=== PATIENT | male | born 1935 | race Caucasian/White ===

== ENCOUNTER 2023-03-06 12:51 | Outpatient (OUT) | payer MEDICARE, BC, OTHER, SELFPAY ==
--- NOTE | 2023-03-06 12:53 | VEIN_ITS ---
Patient: FADUMO FERRIS Exam Date: 03/06/2023 : 1935 Gender:M Ordering : DR. ALEX GuzmánPVale Admission #: [id number] Family : Order #: [id number] CLICK HERE TO VIEW EXAM RADIOLOGY REPORT PROCEDURE: FACILITY EST COMPREHENSIVE VEIN CENTER - OFFICE VISIT INITIAL COMPARISON: VC EXT VENOUS REFLUX SANGITA LMTD, 03/06/2023. PROGRESS NOTES: [age] year old male who presents with a 1 year history of leg pain and swelling, weakness, bulging dilated veins, cramping after walking short distances which resolves with rest. The patient's leg symptoms are symmetric bilaterally. There has been a progression of symptoms over the past year. This increases with walking. The patient describes an improvement with rest. The patient denies any signs and symptoms to suggest arterial ischemia. The patient describes a family history which is noncontributory. The patient has drinking and smoking history of colon no tobacco use or alcohol consumption. Patient has a past medical history significant for thrombocytopenia, hypertension.. The patient denies a history of deep venous thrombus or pulmonary embolus. See separate history and physical for medication list. No prior treatment for varicose or spider veins. No current use of compression stockings. After review of nurse notes, history and physical exam I discussed at length the pathophysiology of venous hypertension and possible treatments, therapies and strategies available. We discussed at length the importance of elevating the lower extremities above the level of the heart, increased physical activity and compression stocking use. Ultrasound venous reflux study performed on same day was discussed at length with the patient. The examination demonstrates bilateral deep vein thrombus within the femoral veins. There is also dilated, incompetent right great saphenous, right small saphenous, and left anterior accessory saphenous veins. PHYSICAL EXAM: The right leg demonstrates several varicosities, a few spider veins, no ulceration, mild edema, no significant skin discoloration. The left leg demonstrates several varicosities, a few spider veins, no ulceration, mild edema, no significant skin discoloration. Both thighs, legs and feet were symmetrically warm to the touch. Good posterior tibial and dorsalis pedis pulses were present bilaterally. IMPRESSION: 1. Bilateral lower extremity deep vein thrombus. 2. Bilateral lower extremity venous insufficiency 3. Bilateral lower extremity varicose veins 4. Mild bilateral lower extremity subcutaneous edema 5. Suspect, according to patient history, flow significant arterial disease 6. CEAP: C3, AP, AP, DC PLAN: 1. Began use of compression stockings 2. Elevated legs and increased physical activity symptomatic relief 3. Primary care physician notified of bilateral deep vein thrombi and will handle treatment. 4. Bilateral lower extremity arterial ultrasound is recommended for further evaluation since I suspect an arterial component to patient's symptoms. If study is negative or of little contribution to patient's symptoms, endovenous ablation of incompetent vein should be considered. Nurse notes, history and physical were reviewed and confirmed, see attached forms. The nurse was present throughout the physical exam and consultation Dictated by: Shawn Veronica M.D. on 03/07/2023 at 08:51 Approved by: Shawn Veronica M.D. on 03/07/2023 at 09:45
--- NOTE | 2023-03-06 12:54 | VEIN_ITS ---
Patient: FADUMO FERRIS Exam Date: 03/06/2023 : 1935 Gender:M Ordering : DR. ALEX GuzmánPVale Admission #: [id number] Family : Order #: [id number] CLICK HERE TO VIEW EXAM RADIOLOGY REPORT PROCEDURE: VC EXT VENOUS REFLUX SANGITA LMTD COMPARISON: None. INDICATIONS: I83.813 TECHNIQUE: Duplex imaging of the lower extremity to assess the deep and superficial venous system for the presence of deep or superficial venous incompetence and to document the location and severity of disease. The study includes evaluation of the great saphenous vein (GSV), anterior accessory saphenous vein (AASV) and small saphenous vein (SSV). Patient scanned in reverse Trendelenburg and standing. FINDINGS: RIGHT LOWER EXTREMITY: Saphenofemoral Junction Reflux: Yes 8.7mm 1.7 sec GSV: Diam (mm) Reflux/ Time (sec) Proximal Thigh 7.9 Yes 2.5 Mid Thigh 5.8 Yes 1.2 Distal Thigh 5.1 Yes 0.7 Prox Calf 3.5 No Mid Calf 4.0 No Saphenopopliteal Junction Reflux: 6.5mm Yes 1.4 SSV: Proximal Calf 5.1 Yes 0.8 Mid Calf 3.0 No AASV: Proximal Thigh Mid Thigh Distal Thigh Thrombi: Positive for DVT in FV and Pop V. Compressibility: Non compressible segments Flow: Areas of no flow. Preforator: Dist/med calf 2.2 mm with 0s reflux. Tech Note: Incompetent SFJ and GSV. Patent varicose vein dist/med calf 2.9mm with 0.8s reflux. Patent medial knee 4.0mm with 2.6s reflux. Patent varicose vein mid/med thigh 5.1mm with 1.2s reflux. Patent varicose vein dist/med thigh 2.7mm with 0.9s reflux. LEFT LOWER EXTREMITY: Saphenofemoral Junction Reflux: Yes 8.4 mm 0.7 sec GSV: Diam (mm) Reflux/Time (sec) Proximal Thigh 2.8 No Mid Thigh 1.8 Yes 0.6 Distal Thigh 2.4 No Prox Calf 1.6 No Mid Calf 2.2 No Saphenopopliteal Junction Relux: 2.7 mm No SSV: Proximal Calf 2.1 No Mid Calf 1.7 No AASV: Proximal Thigh 5.6 Yes 1.4 Mid Thigh 5.6 Yes 1.8 Distal Thigh Thrombi: Positive for DVT in FV. Compressibility: Non compressible segments Flow: Areas of no flow. Sprayer Insecticide: Dist/med calf 2.5mm with 0s reflux. Tech Note: Incompetent SFJ and AASV. Patent varicose vein mid/med calf 2.9mm with 0s reflux. Patent varicose vein mid/ant thigh 2.3mm with 0.5s reflux. CONCLUSION: 1. Dilated, incompetent right great saphenous vein, right small saphenous vein, and left anterior accessory saphenous vein. 2. Associated incompetent branch saphenous varicosities bilaterally. 3. Deep vein thrombus within right and left femoral veins and right popliteal vein. Findings are being called to the office of Dr. Tobias. Dictated by: Shawn Veronica M.D. on 03/06/2023 at 14:35 Approved by: Shawn Veronica M.D. on 03/06/2023 at 14:44
== END 2023-03-06 12:52 ==
LOC: VC 12:52
PROVIDERS: PCP Podiatrist Foot & Ankle Surgery; Visit Provider Podiatrist Foot & Ankle Surgery
DX: I83.813 Varicose veins of bilateral lower extremities with pain (principal); I87.2 Venous insufficiency (chronic) (peripheral); I83.893 Varicose veins of bilateral lower extremities with other complications; R60.0 Localized edema; I82.413 Acute embolism and thrombosis of femoral vein, bilateral; I82.431 Acute embolism and thrombosis of right popliteal vein
CPT/HCPCS: 93970; G0463

== ENCOUNTER 2023-03-21 13:00 | Outpatient (OUT) | payer MEDICARE, BC, SELFPAY ==
--- NOTE | 2023-03-21 | VEIN_ITS ---
[address] [address] Patient Name: FADUMO FERRIS MRN: [id number] date: 1935 Sex: M Assigned Patient Location: Current Patient Location: Accession/Order Number: [id number] Exam Date: 03/21/2023 13:00 Report Date: 03/21/2023 14:31 At the request of: ANNABEL LEBLANC Procedure: VC Arterial Scan Pillo EXAM: VC Arterial Scan Pillo HISTORY: atherosclerosis of bilateral lower extremities i70.213 COMPARISON: None. TECHNIQUE: Grayscale, color and Doppler ultrasound FINDINGS: Right leg: Normal triphasic waveforms proximally to the level of the popliteal artery. Biphasic waveform popliteal artery and distal. No spectral broadening or delayed systolic upstroke. Normal flow velocities. No occlusion or aneurysm Left leg: Biphasic waveforms throughout the entire leg with a monophasic waveform in the anterior tibial artery and delayed systolic upstroke and spectral broadening in the dorsalis pedis artery. No occlusion or aneurysm IMPRESSION: Mild ischemic waveform throughout the right leg distal to the popliteal artery Mild ischemic waveform throughout the left leg with moderate ischemia in the anterior tibial and dorsalis pedis arteries Electronically authenticated by: ANNABEL LEBLANC Date: 03/21/2023 14:31
== END 2023-03-21 13:01 ==
LOC: VC 03-24 07:48
PROVIDERS: PCP Radiology Diagnostic Radiology; Visit Provider Radiology Diagnostic Radiology
DX: I70.213 Atherosclerosis of native arteries of extremities with intermittent claudication, bilateral legs (principal)
CPT/HCPCS: 93925

== ENCOUNTER 2023-04-22 08:03 | Outpatient (OUT) | payer MEDICARE, BC, SELFPAY ==
--- NOTE | 2023-04-22 08:08 | VEIN_ITS ---
Patient: FADUMO FERRIS Exam Date: 04/22/2023 : 1935 Gender:M Ordering : DR KELSIE LOZANO . Admission #: [id number] Family : Order #: [id number] CLICK HERE TO VIEW EXAM RADIOLOGY REPORT PROCEDURE: VC EXT VENOUS SANGITA LIMITED COMPARISON: None. INDICATIONS: I80.03 Phlebitis of superficial veins of sangita lower extremity TECHNIQUE: Lower extremity schilling scale and Duplex Doppler evaluation of the deep venous system from the inguinal ligament through the calf veins. FINDINGS: REGION: Right lower extremity. THROMBI: Chronic appearing thrombus. Positive for DVT. 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 COMPRESSIBILITY: Non-compressible & partially compressible segments. FLOW: Areas on no flow. OTHER: REGION: Left lower extremity. THROMBI: None.Negative for DVT. COMPRESSIBILITY: Normal compressibility. FLOW: Normal waveform and antegrade flow between 5 and 20 cm/s. OTHER: Negative. *Exam performed in accordance with [facility] practice guidelines- Peripheral venous ultrasound, December 30, 2009. CONCLUSION: 1. Occlusive thrombus identified in the right distal femoral vein 2. Nonocclusive thrombus right popliteal vein Dictated by: Johnathon Graves MD on 04/22/2023 at 08:43 Approved by: Johnathon Graves MD on 04/22/2023 at 08:45
--- NOTE | 2023-04-22 08:08 | VEIN_ITS ---
Patient: FADUMO FERRIS Exam Date: 04/22/2023 : 1935 Gender:M Ordering : DR Darin Tobias . Admission #: [id number] Family : Order #: [id number] CLICK HERE TO VIEW EXAM RADIOLOGY REPORT PROCEDURE: VC FACILITY EST LMTD VEIN CENTER - OFFICE VISIT FOLLOW UP COMPARISON: None. PROGRESS NOTES: The patient reports no interval change from the prior exam. The patient continues to take Eliquis b.i.d. For blood clots. The patient has no new symptoms to report. Physical exam demonstrates scattered bilateral varicose reticular and spider veins. No areas of erythema or warmth to suggest cellulitis or thrombophlebitis. No active ulceration or subcutaneous edema Review of the ultrasound performed the same day demonstrates resolution of thrombus in the left leg however there is occlusive deep vein thrombus in the right femoral vein and nonocclusive deep vein thrombus in the right popliteal vein. Given the persistence of right leg disease, continued surveillance is recommended to the patient rather than treatment of the anterior accessory saphenous vein at this time. I recommended that the patient continue on his Eliquis with follow-up 3-4 months. VEIN/VC Facility EST LMTD IMPRESSION: 1. Persistent deep vein thrombus in the right femoral and right popliteal veins. PLAN: Follow-up in 3-4 months Nurse notes, history and physical were reviewed and confirmed, see attached forms. The nurse was present throughout the physical exam and consultation Dictated by: Johnathon Graves MD on 04/22/2023 at 10:12 Approved by: Johnathon Graves MD on 04/22/2023 at 11:08
== END 2023-04-22 08:04 | disposition home or self-care (01) ==
LOC: VC 08:03
PROVIDERS: PCP Family Medicine; Visit Provider Family Medicine
DX: I82.412 Acute embolism and thrombosis of left femoral vein (principal); I82.431 Acute embolism and thrombosis of right popliteal vein
CPT/HCPCS: 93970; G0463

== ENCOUNTER 2023-05-10 13:40 | Outpatient (OUT) | payer MEDICARE, BC, SELFPAY ==
[2023-05-10 10:56] LABS: Basophils Absolute Auto 0.1 10^3/uL (0.0-0.1); Basophils Percent Auto 1.4 % (0.2-2.0); Eosinophils Absolute Auto 0.2 10^3/uL (0.0-0.7); Hematocrit 46.5 % (42.0-54.0); Hemoglobin 15.5 g/dL (14.0-18.0); Immature Granulocytes Abs Auto 0.01 10^3/uL (0.00-0.03); Immature Granulocytes Pct Auto 0.2 % (0.0-0.5); Lymphocytes Absolute Auto 1.7 10^3/uL (1.2-3.8); Lymphocytes Percent Auto 28.7 % (20.5-60.0); Mean Corpuscular HGB Conc 33.3 g/dL (29.9-35.2); Mean Corpuscular Hemoglobin 30.3 pg (25.9-34.0); Mean Platelet Volume 10.6 fL (9.5-13.5); Monocytes Absolute Auto 0.6 10^3/uL (0.3-0.8); Monocytes Percent Auto 9.5 % (1.7-12.0); Neutrophils Absolute Auto 3.3 10^3/uL (1.4-6.5); Neutrophils Percent Auto 56.2 % (43.0-75.0); Platelet Count 170 10^3/uL (150-450); Red Blood Count 5.11 10^6/uL (4.70-6.10); Red Cell Distribution Width 13.2 % (11.0-15.0); White Blood Count 5.8 10^3/uL (4.0-11.0)
[2023-05-10 11:16] LABS: Estimated Average Glucose 103 mg/dL; Glycohemoglobin A1C 5.2 % (4.5-6.2)
[2023-05-10 11:32] LABS: Alanine Aminotransferase 29 U/L (16-63); Albumin Globulin Ratio 1.1; Albumin Level 3.9 g/dL (3.4-5.0); Alkaline Phosphatase 100 U/L (46-116); Anion Gap 12.1; Aspartate Amino Transferase 23 U/L (15-37); BUN Creatinine Ratio 14.2; Bilirubin Total 0.6 mg/dL (0.2-1.0); Carbon Dioxide 25.2 mmol/L (21.0-32.0); Chloride 104 mmol/L (98-107); Chol HDL Ratio 4.4; Cholesterol 169 mg/dL (<=200); Estimated GFR (African America >60 (>=60); Estimated GFR (Non-African Ame 51 (>=60); Free T3 2.45 pg/mL (2.18-3.98); Globulin 3.4 g/dL; Glucose 103 mg/dL (74-106); HDL Cholesterol 38 mg/dL (40-60); Potassium 4.3 mmol/L (3.5-5.1); Sodium 137 mmol/L (136-145); Thyroid Stimulating Hormone 4.413 uIU/mL (0.358-3.740); Total Protein 7.3 g/dL (6.4-8.2); Triglycerides 56 mg/dL (<=150); VLDL CHOLESTEROL 11.2 mg/dL
== END 2023-05-10 13:41 | disposition home or self-care (01) ==
LOC: LAB 05-19 13:41
PROVIDERS: PCP Family Medicine; Visit Provider Family Medicine
DX: E78.5 Hyperlipidemia, unspecified (principal); R53.1 Weakness; I10 Essential (primary) hypertension; N28.9 Disorder of kidney and ureter, unspecified; R73.09 Other abnormal glucose; D64.9 Anemia, unspecified
CPT/HCPCS: 36415; 80053; 80061; 83036; 83540; 84436; 84443; 84481; 85025

== ENCOUNTER 2023-05-21 13:01 | Outpatient (OUT) | payer MEDICARE, BC, SELFPAY ==
--- NOTE | 2023-05-21 13:03 | CT_ITS ---
[address] [address] Patient Name: FADUMO FERRIS MRN: [id number] date: 1935 Sex: M Assigned Patient Location: CT Current Patient Location: CT Accession/Order Number: [id number] Exam Date: 05/21/2023 13:10 Report Date: 05/21/2023 22:00 At the request of: KELSIE LOZANO Procedure: CT angio LE BI EXAMINATION: CT angio LE BI HISTORY: Weakness R53.1 COMPARISON: No relevant comparison available. TECHNIQUE: After obtaining the patient's consent, CT images of the abdomen, pelvis, and lower extremities were obtain without and with non-ionic intravenous contrast material. Multi-planar reformatted 3-D images were created to optimize vascular anatomy. Dose reduction techniques were achieved by using automated exposure control and/or adjustment of mA and/or kV according to patient size and/or use of iterative reconstruction technique. FINDINGS: AORTA: The distal aorta is normal in caliber with no flow significant stenosis occlusion or aneurysm. Mild atherosclerosis ILIAC: No flow significant stenosis occlusion or aneurysm RIGHT LEG: No flow significant stenosis occlusion or aneurysm. Minimal atherosclerosis LEFT LEG: No flow significant stenosis occlusion or aneurysm. Minimal atherosclerosis LUNG BASES: No visible pulmonary or pleural disease. LIVER: No enlargement, atrophy, abnormal density, or significant focal lesion. BILIARY: No visible dilatation or calcification. PANCREAS: No lesion, fluid collection, ductal dilatation, or atrophy. SPLEEN: No enlargement or focal lesion. ADRENALS: No mass or enlargement. KIDNEYS: No mass, obstruction, or calcification. BOWEL/MESENTERY: No visible mass, obstruction, or bowel wall thickening. Colonic diverticulosis RETROPERITONEUM: No mass or adenopathy. ABDOMINAL WALL: No mass or hernia. URINARY BLADDER: No visible focal wall thickening, lesion, or calculus. PELVIC NODES: No adenopathy. PELVIC ORGANS: Mildly enlarged prostate gland BONES: No bony lesion or fracture. Moderate degenerative changes OTHER: Negative. CT/CT angio LE BI IMPRESSION: No flow significant stenosis, occlusion or aneurysm in the bilateral lower extremity arterial tree Electronically authenticated by: ANNABEL LEBLANC Date: 05/21/2023 22:00
== END 2023-05-21 13:02 | disposition home or self-care (01) ==
LOC: CT 13:01
PROVIDERS: PCP Family Medicine; Visit Provider Family Medicine
DX: R53.1 Weakness (principal)
CPT/HCPCS: 73706; Q9967

== ENCOUNTER 2023-06-10 22:08 | Emergency (ER) | payer MEDICARE, BC, OTHER, SELFPAY ==
[2023-06-10 22:11] VITALS: BP 159/70; PULSE 91; RESP 18; TEMP 36.9; O2SAT 93; BMI 27.5
--- NOTE | 2023-06-10 22:24 | PC.NURSE ---
pt states that he has had anxiety for the past 2 months, saw dr. french last week and was prescribed hydroxyzine and has been taking for little over a week. pt states that the medication isn't helping at all. family states that patient called them the other night and pt was sitting on porch because pt couldn't sleep. pt states today he is feeling hyper and needs something for his anxiety to help him relax.
--- NOTE | 2023-06-10 22:25 | ED.ANXIETY1 ---
HPI - Anxiety General Chief Complaint: Anxiety Stated Complaint: Anxiety Time Seen by Provider: 06/10/23 22:14 Source: patient Mode of arrival: Wheelchair Limitations: no limitations History of Present Illness HPI narrative: patient presents complaining of anxiety. States he was seen by his PCP and prescribed hydroxyzine 25 qid prn. States it is not helping. He is now brought to the [facility] by his family because he is feeling anxious. No chest pain or dyspnea. Past history of anxiety. Son states history of anxiety for some time now but has increased in the past 2 weeks and is now interfering with him sleeping. He is pacing around the house early AM hours not able to rest and feeling panicky MD complaint: Reports anxiety Related Data Home Medications Medication Instructions Recorded Confirmed amitriptyline 50 mg tablet 50 mg PO DAILY 06/10/23 06/10/23 apixaban 5 mg tablet (Eliquis) 5 mg PO DAILY 06/10/23 06/10/23 benazepril 20 mg tablet 20 mg PO DAILY 06/10/23 06/10/23 carvedilol 12.5 mg tablet 12.5 mg PO DAILY 06/10/23 06/10/23 celecoxib 100 mg capsule 100 mg PO DAILY 06/10/23 06/10/23 finasteride 5 mg tablet 5 mg PO DAILY 06/10/23 06/10/23 hydralazine 50 mg tablet 50 mg PO DAILY 06/10/23 06/10/23 levothyroxine 50 mcg tablet 50 mcg PO DAILY 06/10/23 06/10/23 (Synthroid) Allergies Allergy/AdvReac Type Severity Reaction Status Date / Time No Known Drug Allergies Allergy Verified 06/10/23 22:18 Review of Systems ROS Status of ROS 10 or more systems reviewed and unremarkable except as noted in history and below Exam Constitutional Vital Signs, click to edit/add: Last Vital Signs Temp 98.5 F 06/10/23 22:11 Pulse 91 H 06/10/23 22:11 Resp 18 06/10/23 22:11 BP 159/70 H 06/10/23 22:11 Pulse Ox 93 L 06/10/23 22:11 O2 Del Method Room Air 06/10/23 22:11 General appearance: anxious Eye Common normals: EOMs intact bilaterally and conjunctivae normal Respiratory Common normals: normal respiratory effort, no retractions, no use of accessory muscles and clear to auscultation bilaterally Cardio Common normals: regular rate, regular rhythm, S1 normal heart sound and S2 normal heart sound GI Common normals: Normal to inspection, nondistended, normoactive bowel sounds present, soft to palpation and non-tender Extremity Common normals: normal to inspection and full ROM Neuro Common normals: oriented x3, moves all extremities, no focal motor deficits and no sensory deficits noted Psych Mood and affect: anxious Course Vital Signs Vital signs: Vital Signs Temperature 98.5 F 06/10/23 22:11 Pulse Rate 91 H 06/10/23 22:11 Respiratory Rate 18 06/10/23 22:11 Blood Pressure 159/70 H 06/10/23 22:11 Pulse Oximetry 93 L 06/10/23 22:11 Oxygen Delivery Method Room Air 06/10/23 22:11 Temperature 98.5 F 06/10/23 22:11 Pulse Rate 91 H 06/10/23 22:11 Respiratory Rate 18 06/10/23 22:11 Blood Pressure 159/70 H 06/10/23 22:11 Pulse Oximetry 93 L 06/10/23 22:11 Oxygen Delivery Method Room Air 06/10/23 22:11 MDM - Anxiety MDM Narrative Medical decision making narrative: patient presents complaining of anxiety. past history of the same. Prescribed hydroxyzine by his PCP but states it did not help. Given Ativan 0.5mg once here in the department and after an hour he felt relaxed and ready to go home. States he will follow up with his PCP tomorrow Discharge Plan Discharge Chief Complaint: Anxiety Clinical Impression: Acute anxiety Patient Disposition: Home, Self-Care Prescriptions / Home Meds: No Action amitriptyline 50 mg tablet 50 mg PO DAILY Eliquis 5 mg tablet 5 mg PO DAILY benazepril 20 mg tablet 20 mg PO DAILY carvedilol 12.5 mg tablet 12.5 mg PO DAILY celecoxib 100 mg capsule 100 mg PO DAILY finasteride 5 mg tablet 5 mg PO DAILY hydralazine 50 mg tablet 50 mg PO DAILY levothyroxine [Synthroid] 50 mcg tablet 50 mcg PO DAILY Instructions: Anxiety (ED) Stand Alone Forms: Portal Instructions Referrals: Darin Tobias MD [Primary Care Provider] - 1 week
[2023-06-10] MEDS: LORAZEPAM 0.5 MG TABLET PO ×2 (22:46→23:54)
[2023-06-10 23:57] VITALS: O2SAT 97
== END 2023-06-10 23:57 | disposition home or self-care (01) ==
PROVIDERS: Emergency Provider Internal Medicine; PCP Family Medicine
DX: F41.9 Anxiety disorder, unspecified (principal); Z79.899 Other long term (current) drug therapy; Z79.890 Hormone replacement therapy; Z79.01 Long term (current) use of anticoagulants
CPT/HCPCS: 99283

== ENCOUNTER 2023-08-22 12:59 | Outpatient (OUT) | payer MEDICARE, BC, SELFPAY ==
--- NOTE | 2023-08-22 13:03 | US_ITS ---
[place] [id number] Patient Name: FADUMO FERRIS MRN: [id number] date: 1935 Sex: M Assigned Patient Location: Current Patient Location: Accession/Order Number: [id number] Exam Date: 08/22/2023 13:05 Report Date: 08/25/2023 06:46 At the request of: KELSIE LOZANO Procedure: US arterial duplex LE BI EXAMINATION: US arterial duplex LE BI HISTORY: Intermittent Claudication I73.9, Leg Pain M79.606 COMPARISON: No relevant comparison available. TECHNIQUE: Color and Duplex Doppler ultrasound evaluation analysis were performed in the usual manner. FINDINGS: RIGHT LOWER EXTREMITY ARTERIAL: Poor triphasic waveform within iliac and common femoral arteries. Abnormal biphasic waveform within femoral artery through calf arteries. Moderate vessel narrowing throughout secondary to calcified and noncalcified plaque. External Iliac PSV: 153.1 cm/s External Iliac EDV: 4.4 cm/s Common Femoral PSV: 113.6 cm/s Common Femoral EDV: 6.7 cm/s Superficial Femoral Proximal PSV: 125.2 cm/s Proximal EDV: 0.0 cm/s Mid PSV: 143.8 cm/s Mid EDV: 0.0 cm/s Distal PSV: 109.0 cm/s Distal EDV: 0.0 cm/s Popliteal Proximal PSV: 99.7 cm/s Popliteal Proximal EDV: 0.0 cm/s Posterior Tibial Proximal PSV: 79.0 cm/s Proximal EDV: 0.0 cm/s Mid PSV: 88.7 cm/s Mid EDV: 0.0 cm/s Distal PSV: 90.3 cm/s Distal EDV: 0.0 cm/s Anterior Tibial Proximal PSV: 114.0 cm/s Proximal EDV: 0.0 cm/s Mid PSV: 62.8 cm/s Mid EDV: 0.0 cm/s Distal PSV: 59.6 cm/s Distal EDV: 0.0 cm/s LEFT LOWER EXTREMITY ARTERIAL: 4 triphasic waveform within iliac artery. Abnormal biphasic waveform within common femoral and proximal femoral arteries. Abnormal monophasic waveform within distal femoral artery. Biphasic waveform is again seen within the popliteal and posterior tibial artery. Monophasic waveform within anterior tibial artery. Moderate marked vessel narrowing secondary to calcified and noncalcified plaque. External Iliac PSV: 175.3 cm/s External Iliac EDV: 10.9 cm/s Common Femoral PSV: 125.2 cm/s Common Femoral EDV: 0.0 cm/s Superficial Femoral Proximal PSV: 116.0 cm/s Proximal EDV: 0.0 cm/s Mid PSV: 118.0 cm/s Mid EDV: 0.0 cm/s Distal PSV: 79.1 cm/s Distal EDV: 10.2 cm/s Popliteal Proximal PSV: Popliteal Proximal EDV: Posterior Tibial Proximal PSV: 115.8 cm/s Proximal EDV: 0.0 cm/s Mid PSV: 110.0 cm/s Mid EDV: 5.7 cm/s Distal PSV: 115.9 cm/s Distal EDV: Anterior Tibial Proximal PSV: 25.8 cm/s Proximal EDV: 6.3 cm/s Mid PSV: 47.8 cm/s Mid EDV: 6.3 cm/s Distal PSV: 37.4 cm/s Distal EDV: 8.9 cm/s US/US arterial duplex LE BI IMPRESSION: 1. Moderate-marked vessel narrowing bilaterally secondary to atherosclerotic disease resulting in decreased flow and abnormal waveform. Electronically authenticated by: IZA BISHOP Date: 08/25/2023 06:46
--- NOTE | 2023-08-22 13:03 | US_ITS ---
The [address] [address] Patient Name: FADUMO FERRIS MRN: [id number] date: 1935 Sex: M Assigned Patient Location: US Current Patient Location: US Accession/Order Number: [id number] Exam Date: 08/22/2023 13:05 Report Date: 08/22/2023 23:57 At the request of: KELSIE LOZANO Procedure: US venous doppler LE BI EXAMINATION: US venous doppler LE BI HISTORY: Intermittent Claudication I73.9, Leg Pain M79.606 COMPARISON: No relevant comparison available. FINDINGS: REGION: Bilateral lower extremities. THROMBI: Occlusive thrombus within a duplicated left femoral veins. COMPRESSIBILITY: Noncompressible duplicated left femoral vein. FLOW: Normal waveform and antegrade flow between 5 and 20 cm/s throughout right lower extremity and remainder of left lower extremity. OTHER: None. US/US venous doppler LE BI IMPRESSION: 1. Left lower extremity: Acute versus chronic occlusive thrombus within a duplicated left femoral vein; the other femoral vein remains patent. 2. Right lower extremity: No deep vein thrombus within the right lower extremity. Electronically authenticated by: IZA BISHOP Date: 08/22/2023 23:57
== END 2023-08-22 13:00 | disposition home or self-care (01) ==
LOC: US 12:59
PROVIDERS: PCP Family Medicine; Visit Provider Family Medicine
DX: I73.9 Peripheral vascular disease, unspecified (principal); M79.606 Pain in leg, unspecified; R60.0 Localized edema; I82.412 Acute embolism and thrombosis of left femoral vein
CPT/HCPCS: 93925; 93970

== ENCOUNTER 2023-09-02 13:57 | Outpatient (RCR) | payer MEDICARE, BC, OTHER, SELFPAY | END 2023-10-05 07:56 | disposition home or self-care (01) | LOC: PT 13:57 | PROVIDERS: PCP Family Medicine; Visit Provider Family Medicine | DX: M79.605 Pain in left leg (principal) | CPT/HCPCS: 97110; 97140; 97163 ==

== ENCOUNTER 2023-09-26 14:03 | Outpatient (OUT) | payer MEDICARE, BC, OTHER, SELFPAY ==
--- NOTE | 2023-09-26 14:06 | US_ITS ---
[address] [address] Patient Name: FADUMO FERRIS MRN: [id number] date: 1935 Sex: M Assigned Patient Location: Current Patient Location: Accession/Order Number: [id number] Exam Date: 09/26/2023 14:20 Report Date: 09/27/2023 01:43 At the request of: MADDY BARKER Procedure: US carotid duplex BI EXAMINATION: US carotid duplex BI HISTORY: bilateral carotid artery stenosis I65.23 COMPARISON: No relevant comparison available. TECHNIQUE: Duplex Doppler ultrasound analysis of carotid and vertebral arteries. . Bilateral carotid arterial duplex examination was performed using B-mode, color flow and spectral analysis. Carotid stenosis is reported according to validated velocity parameters, similar to NASCET criteria. FINDINGS: RIGHT CAROTID ARTERY: Mild plaque within bulb without significant stenosis. RIGHT VERTEBRAL: Antegrade flow. Subclavian: PSV: 196.6 cm/s EDV: 8.4 cm/s CCA: Prox: PSV: 97.7 cm/s EDV: 11.0 cm/s Mid: PSV: 93.0 cm/s EDV: 9.0 cm/s Distal: PSV: 80.1 cm/s EDV: 15.5 cm/s BULB: PSV: 97.9 cm/s EDV: 15.5 cm/s ICA: Prox: PSV: 75.8 cm/s EDV: 11.1 cm/s Mid: PSV: 68.5 cm/s EDV: 10.2 cm/s Distal: PSV: 62.0 cm/s EDV: 8.9 cm/s ECA: PSV: 80.6 cm/s EDV: 0.0 cm/s VERTEBRAL: PSV: 29.6 cm/s EDV: 8.6 cm/s ICA/CCA ratio: PSV: 1.2 EDV: 1.0 LEFT CAROTID ARTERY: Mild plaque within bulb without significant stenosis. LEFT VERTEBRAL: Antegrade flow. Subclavian: PSV: 74.6 cm/s EDV: 0.0 cm/s CCA: Prox: PSV: 88.5 cm/s EDV: 11.6 cm/s Mid: PSV: 78.8 cm/s EDV: 11.5 cm/s Distal: PSV: 87.9 cm/s EDV: 11.5 cm/s BULB: PSV: 63.3 cm/s EDV: 11.5 cm/s ICA: Prox: PSV: 52.6 cm/s EDV: 10.9 cm/s Mid: PSV: 80.6 cm/s EDV: 17.6 cm/s Distal: PSV: 74.1 cm/s EDV: 20.8 cm/s ECA: PSV: 106.4 cm/s EDV: 7.9 cm/s VERTEBRAL: PSV: 38.3 cm/s EDV: 9.5 cm/s ICA/CCA ratio: PSV: 0.9 EDV: 1.5 US/US carotid duplex BI IMPRESSION: 1. 0-49% flow stenosis bilaterally. 2. Mild atherosclerotic disease. Electronically authenticated by: IZA BISHOP Date: 09/27/2023 01:43
--- OUTSIDE RECORDS SUMMARY | 2023-09-26 14:11 | XMS_ITS | CCD ---
Author Name Unknown Address [address] [place] [address] Organization [facility] Care Team Providers Care Class A Regional Drivers Name Role Phone Marvin, Maria Luisa Unavailable Unavailable Marvin, Maria Luisa Unavailable Unavailable Marvin, Maria Luisa Unavailable Unavailable Hoy, Darin~[phone] UNKNOWN Unavailable Unavailable Marvin, Maria Luisa Unavailable Unavailable Marvin, Maria Luisa Unavailable Unavailable Marvin, Maria Luisa Unavailable Unavailable Hoy, Darin~[phone] UNKNOWN Unavailable Unavailable Marvin, Maria Luisa Unavailable Unavailable Marvin, Maria Luisa Unavailable Unavailable Marvin, Maria Luisa Unavailable Unavailable Micheline Darin~[phone] UNKNOWN Unavailable ALEX Huffman Admitting Unavailable ALEX CHAMORRO Attending Unavailable MICHELINE Tucker, DR IGLESIAS Primary Care Unavailable ALEX CHAMORRO Admitting Unavailable ALEX CHAMORRO Attending Unavailable MICHELINE Tucker, DR IGLESIAS Primary Care Unavailable ELLISTON, DR ANNABEL [employer] Unavailable ALEX CHAMORRO Consulting Unavailable Problems Problem Classification Problem Date Documented Da te Episodic/Chronic Other connective tissue disease (4 sources) Pain in right foot; Translations: [PAIN IN RIGHT FOOT] Onset: 02-12-2023 Episodic Other connective tissue disease (1 source) Pain in left foot; Translations: [PAIN IN LEFT FOOT] Onset: 02-15-2023 Episodic Results Test Name Value Interpretation Reference Range Facility XR FOOT SANGITA MIN 3 VIEWSon XR FOOT SANGITA MIN 3 VIEWS EXAMINATION: XR FOOT SANGITA MIN 3 VIEWS HISTORY: Pain in both feet COMPARISON: No relevant comparison available. FINDINGS: RIGHT FINDINGS: BONES: No acute fracture or dislocation. Mild to moderate diffuse degenerative change most significant at the first metatarsal-phalangeal joint. Moderate enthesopathic spurring at the Achilles and plantar insertions of the calcaneus SOFT TISSUES: Negative. No visible soft tissue swelling. OTHER: Negative. LEFT FINDINGS: BONES: No acute fracture or dislocation. Mild to moderate diffuse degenerative change most significant at the first metatarsal-phalangeal joint. Moderate enthesopathic spurring at the Achilles and plantar insertions of the calcaneus SOFT TISSUES: Negative. No visible soft tissue swelling. OTHER: Negative. IMPRESSION: RIGHT CONCLUSION: Degenerative changes LEFT CONCLUSION: Degenerative changes Electronically authenticated by: ANNABEL LEBLANC Date: 2023-02-12 17:34 Normal [facility] Anesthesia Consultationon Anesthesia Consultation Patient: FADUMO FERRIS Age: 82 years Sex: Male : 1935 Associated Diagnoses: None Author: Sushant Mackay Jr., DO Postoperative Information Post Operative Note: Post Anesthesia Care Unit. Anesthetic utilized: General, Monitored anesthesia care. Health Status Allergies: Allergic Reactions (Selected)No Known Allergies Current medications: (Selected) PrescriptionsPrescribedDME: DME, DME to be provided as needed, Print Requisition, SupplyDocumented MedicationsDocumentedCelebrex: 100 mg, Oral, BID, InflammationCentrum Silver: 1 tab, Oral, Daily, Refill(s) 0, Prophylaxisamitriptyline 50 mg Tab: 50 mg = 1 tab(s), Oral, Once a day (at bedtime), PRN Insomnia, Insomniaaspirin: 81 mg, Oral, Daily, Prophylaxisbenazepril 20 mg Tab: 60 mg = 3 tab(s), Oral, Daily, High blood pressurecarvedilol 12.5 mg Tab: 12.5 mg = 1 tab(s), Oral, BID, High blood pressurefinasteride 5 mg Tab: 5 mg = 1 tab(s), Oral, BedtimehydrALAZINE 50 mg Tab: 50 mg = 1 tab(s), Oral, BID, High blood pressure Problem list: All ProblemsArthritis / SNOMED CT 4295975 / ConfirmedBenign hypertension / SNOMED CT 62585898 / ConfirmedCervical spondylosis with myelopathy / SNOMED CT 932124799 / ConfirmedHx of insomnia / SNOMED CT 515225263 / ConfirmedEnlarged prostate / SNOMED CT 423778101 / ConfirmedMyelomalacia of cervical cord / SNOMED CT 19411460 / ConfirmedLeg pain, left / SNOMED CT 1823396525 / ConfirmedCervical spinal stenosis / SNOMED CT 532072566 / Confirmed Physical Examination Intake and Output Denies significant n/v and is tolerating p.o. No qualifying data available Respiratory: Adequate air exchange with hinduism of preoperative function.. Cardiovascular: Cardiovascular function is stable and has returned to preoperative levels.. Neurologic: Pt has returned to preoperative baseline.. Review / Management Condition: Stable. Assessment Anesthetic outcome No anesthetic complications noted. Plan Transfer/ Discharge: Patient can be discharged from PACU when criteria met. Condition good. Normal [facility] Coding Summary.on 09-22-2017 Coding Summary. CODING DATE: 017 FINAL [facility] STATUS: Home (Routine DC) PAYOR: Medicare APC DESCRIPTION 5523 Level 3 Imaging without Contrast ADMIT DX: REASON FOR VISIT DX: M48.062 Spinal stenosis, lumbar region with neurogenic claudication FINAL DX: PRINCIPAL: M48.062 Spinal stenosis, lumbar region with neurogenic claudication SECONDARY: S32.048A Other fracture of fourth lumbar vertebra, initial encounter for closed fracture M51.26 Other intervertebral disc displacement, lumbar region PYMT PROC APC STAT DESCRIPTION DOCTOR NAME DATE Anesthesia for 09/19/2017 non-invasive imaging or radiation therapy NOTE: The code number assigned matches the documented diagnosis and / or procedure in the patient's chart. However, the narrative phrase printed from the coding software may appear abbreviated, or result in slightly different terminology. Coded By: Fabiana Petersen Date Saved: 09/22/2017 01:50 pm [facility] Anesthesia Consultationon Anesthesia Consultation Patient: FADUMO FERRIS Age: 82 years Sex: Male : 1935 Associated Diagnoses: None Author: Sushant Mackay Jr., DO Preoperative Information Anesthesia history: Patient History: Pt./ family denies any personal or family hx of problems/difficulties with anesthesia.. Re-eval prior to induction: Inital eval reviewed: No significant interval change, NPO 10 hours.. Review of Systems Constitutional: See nursing assessment.. Cardiovascular: Cardiac risk assessment performed. Pt. denies any significant change in their cv hx.. Respiratory: Pt. denies any signicant change in their respiratory status.. Neurologic: Pt. denies any acute neurological changes.. Health Status Allergies: Allergic Reactions (Selected)No Known Allergies, Allergies (1) Active ReactionNo Known Allergies None Documented Current medications: (Selected) Inpatient MedicationsOrderedLactated Ringers IV Carisa 1000 mL 1,000 mL: 1,000 mL, IV, 150 mL/hr, Routine, Start date 09/19/17 7:30:00 EST, 6.7 hour(s), Total volume (mL): 1,000PrescriptionsPrescribedDME: DME, DME to be provided as needed, Print Requisition, SupplyDocumented MedicationsDocumentedCelebrex: 100 mg, Oral, BID, InflammationCentrum Silver: 1 tab, Oral, Daily, Refill(s) 0, Prophylaxisamitriptyline 50 mg Tab: 50 mg = 1 tab(s), Oral, Once a day (at bedtime), PRN Insomnia, Insomniaaspirin: 81 mg, Oral, Daily, Prophylaxisbenazepril 20 mg Tab: 60 mg = 3 tab(s), Oral, Daily, High blood pressurecarvedilol 12.5 mg Tab: 12.5 mg = 1 tab(s), Oral, BID, High blood pressurefinasteride 5 mg Tab: 5 mg = 1 tab(s), Oral, BedtimehydrALAZINE 50 mg Tab: 50 mg = 1 tab(s), Oral, BID, High blood pressure, Medications (1) ActiveScheduled: (0)Continuous: (1)Lactated Ringers 1,000 mL 1,000 mL, IV, 150 mL/hrPRN: (0) Problem list: All ProblemsArthritis / SNOMED CT 8725515 / ConfirmedBenign hypertension / SNOMED CT 88451066 / ConfirmedCervical spondylosis with myelopathy / SNOMED CT 514691047 / ConfirmedHx of insomnia / SNOMED CT 111563799 / ConfirmedEnlarged prostate / SNOMED CT 303494141 / ConfirmedMyelomalacia of cervical cord / SNOMED CT 16366858 / ConfirmedLeg pain, left / SNOMED CT 6593617544 / ConfirmedCervical spinal stenosis / SNOMED CT 230940683 / Confirmed, Active Problems (8)Arthritis Benign hypertension Cervical spinal stenosis Cervical spondylosis with myelopathy Enlarged prostate Hx of insomnia Leg pain, left Myelomalacia of cervical cord Histories Past Medical History: No active or resolved past medical history items have been selected or recorded. Family History: HypothyroidismMotherDiverticulitis of colonFather Procedure history: MRI with sedation on 06/15/2015 at 80 Years.e/o age spots.Comments:08/09/2015 10:01 - [facility], [facility] face and backCervical laminectomy ([id number]).Cataract extraction and insertion of intraocular lens ([id number]).Comments:08/18/2017 11:18 - Vane [facility], [facility] Social History Social & Psychosocial XylnuqKpaoxzx23/04/2015 Risk Assessment: Denies Alcohol UseSubstance Abuse08/09/2015 Risk Assessment: Denies Substance BwiuuQibgrnu83/04/2015 Risk Assessment: Denies Tobacco Use. Physical Examination Vital Signs 09/19/2017 10:00 EST Heart Rate Monitored 75 bpm Respiratory Rate Monitored 8 br/min Systolic Blood Pressure 126 mmHg Diastolic Blood Pressure 66 mmHg SpO2 98 % 09/19/2017 09:55 EST Temperature Temporal Artery 36.3 DegC Heart Rate Monitored 81 bpm Respiratory Rate Monitored 13 br/min Systolic Blood Pressure 126 mmHg Diastolic Blood Pressure 66 mmHg SpO2 99 % 09/19/2017 08:08 EST Heart Rate Monitored 84 bpm SpO2 98 % 09/19/2017 08:08 EST Systolic Blood Pressure 189 mmHg HI Diastolic Blood Pressure 89 mmHg Blood Pressure Location Right arm Mean Arterial Pressure, Monitered 122 mmHg BP/Pulse Patient Position Supine 09/19/2017 08:08 EST Apical Heart Rate 88 bpm 09/19/2017 08:07 EST Heart Rate Monitored 84 bpm SpO2 98 % 09/19/2017 08:07 EST Respiratory Rate 20 br/min 09/19/2017 08:06 EST Systolic Blood Pressure 201 mmHg HI Diastolic Blood Pressure 91 mmHg HI Blood Pressure Location Left arm Mean Arterial Pressure, Monitered 128 mmHg BP/Pulse Patient Position Supine 09/19/2017 08:05 EST Temperature Oral 36.6 DegC Vitals Signs (last 24 hrs) Last Charted Minimum MaximumTemp 36.3 (SEP 19 09:55) 36.3 (SEP 19 09:55) 36.6 (SEP 19 08:05)Heart Rate 75 (SEP 19 10:00) 75 (SEP 19 10:00) 88 (SEP 19 08:08)Resp Rate 8 (SEP 19 10:00) 8 (SEP 19 10:00) 20 (SEP 19 08:07)SBP 126 (SEP 19 10:00) 126 (SEP 19 09:55) H 201 (SEP 19 08:06)DBP 66 (SEP 19 10:00) 66 (SEP 19 09:55) H 91 (SEP 19 08:06)MAP 122 (SEP 19 08:08) 122 (SEP 19 08:08) 128 (SEP 19 08:06)SpO2 98 (SEP 19 10:00) 98 (SEP 19 08:07) 99 (SEP 19 09:55) Pain assessment: Pain Assessment 09/19/2017 08:07 EST Preliminary Pain Scale 0 09/19/2017 08:07 EST Primary Pain Location Upper leg Numeric Pain Scale 0 = No pain . Airway: Normal oral/pharyngeal anatomy.. Respiratory: Adequate air exchange.. Cardiovascular: Adequate perfusion and function. Review / Management Results review: No qualifying data available. Plan [place] [employer] (ASA) physical status classification: Class III. Anesthetic Preoperative Plan Anesthesia: General. . Anesthetic plan, risks, benefits, and alternatives discussed with the patient and/or family. Pt. and/or family present and agree to proceed as planned.. Normal [facility] Progress Note-Nurseon 2016 Progress Note-Nurse PT RETURN FROM PACU.ALERT.DENIES ANY PAIN.PO FLUIDS GIVEN.CALL LIGHT WITHIN REACH. Normal [facility] Progress Note-Nurse DISCARGE INSTRUCTIONS REGARDING POST MRI GIVEN AND EXPLAINED TO PT AND SON WITH THEIR UNDERSTANDING. Normal [facility] Progress Note-Nurse 0855: Patient given Versed and taken from ASU to MRI by MITCH Jones, Rosa M MOONEY, Tate MOONEY student, and Dr. Mackay.0900: Arrived with patient into MRI Zone3. Patient moved onto MRI cart by MITCH Jones, VINICIO Perez and Danya Salazar MRI techs. Foam wedge applied under bilateral knees to aid in comfort of patient by Faith. Patient did verbalize comfort. Patient then moved into MRI Zone 4. Patient was connected to all appropriate monitors with readings obtained and then intubated by Josemanuel MOONEY with Rosa M and Dr. Mackay supervising. Patient was moved into MRI maintaining clearance of all lines and pressure points. Soft towel was placed between patients right elbow/upper arm and velcro strap of MRI table. Rosa M, AA Josemanuel AA student, and Robert, RN present in control room during scan. 919: MRI scan started. 944: MRI scan completed. 53: Patient taken back to PACU with O2 via simple mask by Dr. Mackay, Josemanuel MOONEY student, and Robert RN and report given to Elana Fonseca RN. Normal [facility] Progress Note-Nurse Pt admitted to ASU #18 for prep for MRI with sedation. Pt alert and oriented. Denies pain on admission. Normal [facility] Coding Summary.on 08-26-2017 Coding Summary. CODING DATE: 017 FINAL [facility] STATUS: Home (Routine DC) PAYOR: Medicare APC DESCRIPTION 5522 Level 2 Imaging without Contrast ADMIT DX: REASON FOR VISIT DX: M48.062 Spinal stenosis, lumbar region with neurogenic claudication FINAL DX: PRINCIPAL: M48.062 Spinal stenosis, lumbar region with neurogenic claudication SECONDARY: Z98.890 Other specified postprocedural states M50.30 Other cervical disc degeneration, unspecified cervical region M51.36 Other intervertebral disc degeneration, lumbar region PYMT PROC APC STAT DESCRIPTION DOCTOR NAME DATE NOTE: The code number assigned matches the documented diagnosis and / or procedure in the patient's chart. However, the narrative phrase printed from the coding software may appear abbreviated, or result in slightly different terminology. Coded By: Pippa Avendano Date Saved: 08/26/2017 02:17 pm Normal [facility] XR Spine Cervical 2 or 3 Caron howard 08-25-2017 XR Spine Cervical 2 or 3 Views Exam Date/Time:08/22/2017 09:18 ESTReason for Exam:SPINAL STENOSIS OF LUMBAR REION WITH NEUROGENIC CLAUDICATION M48.062, LUMBAR STENOSIS WITHNEUROGENIC CLAUDICTION , M48.062ReportIMPRESSION: POSTSURGICAL CHANGES. DEGENERATIVE CHANGES.CLINICAL HISTORY: spinal stenosis of lumbar region with neurogenic hczpfedylcxaP79.062, lumbar stenosis with neurogenic claudication, M48.062. COMPARISON: 09/14/2015.COMMENT: 3 views. There are hypertrophic degenerative arthritic changes at theatlantoodontoid articulation. There is a laminectomy defect at C3. There islaminoplasty at the C4, C5, and C6 levels, with metallic surgical hardware associatedwith the laminoplasty defects on the left. There are hypertrophic degenerativearthritic changes involving cervical facet joints. There is interspace narrowing atC5-C6. There are marginal hypertrophic spurs involving cervical vertebral bodies.There is grade 1 anterolisthesis at C4-C5. The cervical vertebral bodies aremaintained in height. No fracture is evident. There has been no significant changewhen compared to the prior exam. FINAL REPORT Dictated: 08/25/2017 6:22 am Boby Saucedo M.D. Signed (Electronic Signature): 08/25/2017 6:22 am Signed by: Boby Saucedo M.D. Transcribed by: FRANCISCO Technologist: ANSLEY Oneil [facility] XR Spine Lumbosacral 2 or 3 Viewson 08-24-2017 XR Spine Lumbosacral 2 or 3 Views Exam Date/Time:08/22/2017 09:18 ESTReason for Exam:SPINAL STENOSIS OF LUMBAR REION WITH NEUROGENIC CLAUDICATION M48.062, LUMBAR STENOSIS WITHNEUROGENIC CLAUDICTION , M48.062ReportIMPRESSION: MULTILEVEL DEGENERATIVE CHANGES.CLINICAL HISTORY: spinal stenosis of lumbar region with neurogenic oambumkxvourW50.062, lumbar stenosis with neurogenic claudication, M48.062. COMMENT: 3 views. There is xelz-ta-vlymiglv narrowing of all of the lumbarinterspaces. There are marginal hypertrophic spurs involving all the lumbar vertebralbodies and visualized lower thoracic vertebral bodies. There are hypertrophicdegenerative facet arthritic changes of lumbar facet joints. The lumbar vertebralbodies are maintained in height. No fracture or subluxation is noted. FINAL REPORT Dictated: 08/24/2017 4:28 pm Boby Saucedo M.D. Signed (Electronic Signature): 08/24/2017 4:28 pm Signed by: Boby Saucedo M.D. Transcribed by: FRANCISCO Technologist: ANSLEY Oneil [facility] Coding Summary.on 08-19-2017 Coding Summary. CODING DATE: 017 FINAL [facility] STATUS: Home (Routine DC) PAYOR: Medicare APC DESCRIPTION 5521 Level 1 Imaging without Contrast ADMIT DX: REASON FOR VISIT DX: Z01.818 Encounter for other preprocedural examination FINAL DX: PRINCIPAL: Z01.818 Encounter for other preprocedural examination SECONDARY: PYMT PROC APC STAT DESCRIPTION DOCTOR NAME DATE NOTE: The code number assigned matches the documented diagnosis and / or procedure in the patient's chart. However, the narrative phrase printed from the coding software may appear abbreviated, or result in slightly different terminology. Coded By: Pippa Avendano Date Saved: 08/19/2017 01:27 pm Normal [facility] XR Chest 2 Viewson 7 XR Chest 2 Views Exam Date/Time:08/18 11:59 ESTReason for Exam:Pre opReportIMPRESSION: NO EVIDENCE OF ACTIVE CHEST DISEASE.CLINICAL HISTORY: Pre op. COMPARISON: 08/09/2013.COMMENT: The heart is normal in size. The mediastinum is unremarkable. The lungs appear clear. No infiltration nor pleural effusion is evident. There are hypertrophic degenerativechanges of both shoulders.No significant change is noted when compared to the prior exam. FINAL REPORT Dictated: 08/19/2017 6:41 am Boby Saucedo M.D. Signed (Electronic Signature): 08/19/2017 6:41 am Signed by: Boby Saucedo M.D. Transcribed by: FRANCISCO Technologist: KASSANDRA Normal [facility] BUNon 08-18-2017 Urea nitrogen 18 mg/dL Normal 5-21 [facility] Comment on above: Performed By: #### [id number], 5235093, 292 1234, 46717476, 3342919, 8602434 ####[facility] [address] [place] [address] CBC w/Indiceson 08-18-2017 Erythrocyte distribution width Auto Ratio (RBC) 14.3 % High 10.9-14.2 [facility] Comment on above: Performed By: #### 6961231, 0225085, 292 1234, 04723753, 6294566, 5478847 ####[facility] [address] [place] [address] Erythrocytes (RBC) 5.0 E12/L Normal 4.3-5.9 [facility] Comment on above: Performed By: #### 4339679, 2357699, 292 1234, 31795167, 6537976, 2835669 ####[address] [place] [address] Hematocrit (HCT) 45.2 % Normal 37.7-49.0 [facility] Comment on above: Performed By: #### 3672164, 3660386, 292 1234, 19361918, 4558941, 1717104 ####[place] [address] Hemoglobin mass conc (Bld) 15.4 g/dL Normal 13.5-17.5 [facility] Comment on above: Performed By: #### 7643993, 4589696, 292 1234, 29603509, 0340979, 3634626 ####[place] [address] MCH 31.0 pg Normal 27.0-34.0 [facility] Comment on above: Performed By: #### 7764852, 8415929, 292 1234, 14823221, 8565506, 9261171 ####[place] [id number] MCHC mass conc (RBC) 34.1 g/dL Normal 31.4-39.3 [facility] Comment on above: Performed By: #### 4979346, 0151538, 292 1234, 29959305, 2649513, 9122578 ####[place] [address] MCV 91.0 fL Normal 80.0-100.0 [facility] Comment on above: Performed By: #### 6626986, 0190542, 292 1234, 81258719, 6479519, 0398418 ####[address] [place] [address]157 Platelet mean volume (PMV) 8.9 fL Normal 6.4-10.8 [facility] Comment on above: Performed By: #### 6637090, 1323646, 292 1234, 95733876, 8965545, 1381117 ####[facility] [address] [place] [address] Platelets 153.0 E9/L Normal 150.0-500. 0 [facility] Comment on above: Performed By: #### 7326986, 4667130, 292 1234, 08977051, 8728421, 7692662 ####[facility] [address] [place] [address] WBC (Leukocytes) 6.1 E9/L Normal 4.0-11.0 [facility] Comment on above: Performed By: #### 4555582, 7024787, 292 1234, 41699920, 6142871, 9933543 ####[facility] [address] [place] [address] Creatinineon 08-18-2017 Creatinine 1.1 mg/dL Normal 0.5-1.3 [facility] Comment on above: Performed By: #### 7576353, 2963480, 292 1234, 99835209, 0890254, 0442547 ####[facility] [address] [place] [address] Glucoseon 08-18-2017 Glucose mass conc 105 mg/dL Normal 55-199 [facility] Comment on above: Performed By: #### 4429135, 1946137, 292 1234, 98713594, 4728454, 9177118 ####[facility] [address] [place] [address] Lyteson 08-18-2017 Anion gap 9 mmol/L Normal 6-16 [facility] Comment on above: Performed By: #### 7181240, 8146880, 292 1234, 22549446, 9659649, 6756826 ####[facility] [address] [place] [address] Chloride 106 mmol/L Normal 101-111 [facility] Comment on above: Performed By: #### 9404657, 5967364, 292 1234, 35495468, 2190571, 5650607 ####[facility] [address] [place] [address] CO2 30 mmol/L Normal 21-31 [facility] Comment on above: Performed By: #### 4318003, 8044396, 292 1234, 92772136, 3335301, 1230929 ####[facility] [address] [place] [address] Potassium molar conc 4.5 mmol/L Normal 3.5-5.3 [facility] Comment on above: Performed By: #### 2224669, 3835271, 292 1234, 07586913, 9488124, 9176523 ####[facility] [address] [place] [address] Sodium 140 mmol/L Normal 135-145 [facility] Comment on above: Performed By: #### 4755352, 7620253, 292 1234, 03511034, 4066893, 6081009 ####[facility] [address] [place] [address] eGFRon 08-18-2017 eGFR (black) mL/min/{1.73_m2} Normal >=59 [facility] Comment on above: Order Comment: Order added by Araceli Ex pert. Result Comment: eGFR is race adjusted. AA=. Performed By: #### 2 136218, 7121273, 1157499, 79678425, 1974542, 1710980 ####[facility] [address] [place] [address] eGFR (non-black) mL/min/{1.73_m2} Normal >=59 [facility] Comment on above: Order Comment: Order added by Araceli Ex pert. 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 Kidney failure is indicated at less than 15 mL/min/1.73m2. Performed By: #### 2 799047, 1372764, 0653353, 23031583, 9753526, 2918693 ####[facility] [address] [place] [address] Encounters Encounter Date Encounter Type Care Provider Facility Start: 03-06-2023 ambulatory ALEX CHAMORRO Faci lity:[facility]1 Start: 02-12-2023 End: 02-13-2023 ambulatory ALEX CHAMORRO Facility: Start: 09-19-2017 End: 09-19-2017 Ambulatory Maria Luisa Marvin [place] Start: 08-22-2017 End: 08-22-2017 Ambulatory Maria Luisa Marvin [place] Start: 08-18-2017 End: 08-19-2017 Ambulatory Maria Luisa Marvin [place] Payers Date Payer Category Payer Medicare [id number] 1958 [employer] ( and others) [id number] 1958 Medicare [id number] 1958 Unknown [id number] 1935 Unknown [id number] 1935 Unknown [id number] Summary Purpose Family History No Family History Records FoundNo Family History Records Found Advance Directives No Advanced Directives Records FoundNo Advanced Directives Records Found Additional Source Comments (unrecognized sect ion and content) No Status Records FoundNo Status Records Found INFORMATION SOURCE (unrecogn ized section and content) DATE CREATED AUTHOR 03/31/[address] [facility] DATE CREATED AUTHOR AUTHOR'S JEF RO 02/18/2023 [facility] FOR RECORDS PERTAINING TO PATIENTS WHO ARE OR HAVE BEEN ENROLLED IN A CHEMICAL DEPENDENCY/SUBSTANCEABUSE PROGRAM, SOME INFORMATION MAY BE OMITTED. This clinical summary was aggregated from multiple sources. Caution should be exercised in using it in the provision of clinical care. This summary normalizes information from multiple sources, and as a consequence, information in this document may materially change the coding, format and clinical context of patient data. In addition, data may be omitted in some cases. CLINICAL DECISIONS SHOULD BE BASED ON THE PRIMARY CLINICAL RECORDS. [employer] provides no warranty or guarantee of the accuracy or completeness of information in this document.
== END 2023-09-26 14:04 | disposition home or self-care (01) ==
LOC: US 14:03
PROVIDERS: PCP Family Medicine
DX: I65.23 Occlusion and stenosis of bilateral carotid arteries (principal); I73.9 Peripheral vascular disease, unspecified
CPT/HCPCS: 93880

== ENCOUNTER 2023-10-07 12:56 | Outpatient (OUT) | payer MEDICARE, BC, OTHER, SELFPAY ==
--- OUTSIDE RECORDS SUMMARY | 2023-10-07 12:58 | XMS_ITS | CCD ---
Author Name Unknown Address [address] [place] [address] Organization [facility] Care Team Providers Care Comfort Station Supervisor Name Role Phone Marvin, Maria Luisa Unavailable Unavailable Marvin, Maria Luisa Unavailable Unavailable Marvin, Maria Luisa Unavailable Unavailable Hoy, Darin~[phone] UNKNOWN Unavailable Unavailable Marvin, Maria Luisa Unavailable Unavailable Marvin, Maria Luisa Unavailable Unavailable Marvin, Maria Luisa Unavailable Unavailable Hoy, Darin~[phone] UNKNOWN Unavailable Unavailable Marvin, Maria Luisa Unavailable Unavailable Marvin, Maria Luisa Unavailable Unavailable Marvin, Maria Luisa Unavailable Unavailable Micheline, Darin~[phone] UNKNOWN Unavailable ALEX Huffman Admitting Unavailable ALEX CHAMORRO Attending Unavailable MICHELINE Tucker, DR IGLESIAS Primary Care Unavailable ALEX HCAMORRO Admitting Unavailable ALEX CHAMORRO Attending Unavailable MICHELINE Tucker, DR IGLESIAS Primary Care Unavailable [place], DR ANNABEL Willett Consult[employer] Unavailable ALEX CHAMORRO [...] by: ANNABEL LEBLANC Date: 2023-02-12 17:34 Normal [facility] Anesthesia Consultationon Anesthesia Consultation Patient: FADUMO FERRIS [...] Problem list: All ProblemsArthritis / SNOMED CT 4947607 / ConfirmedBenign hypertension / SNOMED CT 50415450 / ConfirmedCervical spondylosis with myelopathy / SNOMED CT 168749547 / ConfirmedHx of insomnia / SNOMED CT 141592001 / ConfirmedEnlarged prostate / SNOMED CT 621978767 / ConfirmedMyelomalacia of cervical cord / SNOMED CT 71969635 / ConfirmedLeg pain, left / SNOMED CT 3720104390 / ConfirmedCervical spinal stenosis / SNOMED CT 133442426 / Confirmed Physical Examination Intake and Output Denies significant n/v and is tolerating p.o. No qualifying data available Respiratory: Adequate air exchange with nondenominational of preoperative function.. Cardiovascular: Cardiovascular function is stable and has returned to preoperative levels.. Neurologic: Pt has returned to preoperative baseline.. Review / Management Condition: Stable. Assessment Anesthetic outcome No anesthetic complications noted. Plan Transfer/ Discharge: Patient can be discharged from PACU when criteria met. Condition good. Normal [facility] Coding Summary.on 09-22-2017 Coding Summary. CODING DATE: 017 FINAL [facility] STATUS: Home (Routine DC) PAYOR: Medicare APC [...] Fabiana Petersen Date Saved: 09/22/2017 01:50 pm [facility] Anesthesia Consultationon Anesthesia Consultation Patient: FADUMO FERRIS [...] Problem list: All ProblemsArthritis / SNOMED CT 4370409 / ConfirmedBenign hypertension / SNOMED CT 27556282 / ConfirmedCervical spondylosis with myelopathy / SNOMED CT 420876687 / ConfirmedHx of insomnia / SNOMED CT 989095080 / ConfirmedEnlarged prostate / SNOMED CT 626546156 / ConfirmedMyelomalacia of cervical cord / SNOMED CT 13571823 / ConfirmedLeg pain, left / SNOMED CT 6299323006 / ConfirmedCervical spinal stenosis / SNOMED CT 345283867 / Confirmed, Active Problems (8)Arthritis Benign hypertension [...] Years.e/o age spots.Comments:08/09/2015 10:01 - Yvan MEYER, [facility] face and backCervical laminectomy ([id number]).Cataract extraction and insertion of intraocular lens ([id number]).Comments:08/18/2017 11:18 - Vane [facility] Social History Social & Psychosocial NtvthvEptlepv64/04/2015 Risk Assessment: Denies Alcohol UseSubstance Abuse08/09/2015 Risk Assessment: Denies Substance AlgteQnlibte65/04/2015 Risk Assessment: Denies Tobacco Use. Physical Examination [...] Results review: No qualifying data available. Plan [place] [employer]esthesiologists (ASA) physical status classification: Class III. Anesthetic Preoperative Plan Anesthesia: General. . Anesthetic plan, risks, benefits, and alternatives discussed with the patient and/or family. Pt. and/or family present and agree to proceed as planned.. Normal [facility] Progress Note-Nurseon 2016 Progress Note-Nurse PT RETURN FROM PACU.ALERT.DENIES ANY PAIN.PO FLUIDS GIVEN.CALL LIGHT WITHIN REACH. Normal [facility] Progress Note-Nurse DISCARGE INSTRUCTIONS REGARDING POST MRI GIVEN AND EXPLAINED TO PT AND SON WITH THEIR UNDERSTANDING. Normal [facility] Progress Note-Nurse 0855: Patient given Versed and [...] report given to Elana Fonseca RN. Normal [facility] Progress Note-Nurse Pt admitted to [facility] #18 for prep for MRI with sedation. Pt alert and oriented. Denies pain on admission. Normal [facility] Coding Summary.on 08-26-2017 Coding Summary. CODING DATE: 017 FINAL [facility] STATUS: Home (Routine DC) PAYOR: Medicare [...] Avendano Date Saved: 08/26/2017 02:[address] [facility] XR Spine Cervical 2 or 3 Caron howard 08-25-2017 XR Spine Cervical 2 or 3 Views Exam Date/Time:08/22/2017 09:18 ESTReason for Exam:SPINAL STENOSIS OF LUMBAR REION WITH NEUROGENIC CLAUDICATION M48.062, LUMBAR STENOSIS WITHNEUROGENIC CLAUDICTION , M48.062ReportIMPRESSION: POSTSURGICAL CHANGES. DEGENERATIVE CHANGES.CLINICAL HISTORY: spinal stenosis of lumbar region with neurogenic rqfordiedkndS88.062, lumbar stenosis with neurogenic claudication, M48.062. COMPARISON: [...] M.D. Transcribed by: FRANCISCO Technologist: ANSLEY Oneil [facility] XR Spine Lumbosacral 2 or 3 Viewson 08-24-2017 XR Spine Lumbosacral 2 or 3 Views Exam Date/Time:08/22/2017 09:18 ESTReason for Exam:SPINAL STENOSIS OF LUMBAR REION WITH NEUROGENIC CLAUDICATION M48.062, LUMBAR STENOSIS WITHNEUROGENIC CLAUDICTION , M48.062ReportIMPRESSION: MULTILEVEL DEGENERATIVE CHANGES.CLINICAL HISTORY: spinal stenosis of lumbar region with neurogenic axbsjifpcdclV46.062, lumbar stenosis with neurogenic claudication, M48.062. COMMENT: 3 views. There is iiot-av-kalapnnd narrowing of all of the lumbarinterspaces. There [...] M.D. Transcribed by: FRANCISCO Technologist: ANSLEY Oneil [facility] Coding Summary.on 08-19-2017 Coding Summary. CODING DATE: 017 FINAL [facility] STATUS: Home (Routine DC) PAYOR: Medicare [...] Avendano Date Saved: 08/19/2017 01:[address] [facility] XR Chest 2 Viewson 7 XR Chest [...] M.D. Transcribed by: FRANCISCO Technologist: KASSANDRA Normal [facility] BUNon 08-18-2017 Urea nitrogen 18 mg/dL Normal 5-21 [facility] Comment on above: Performed By: #### [id number], 2837667, 292 1234, 41955676, 9136123, 1080788 ####[facility] [address] [place] [address] CBC w/Indiceson 08-18-2017 Erythrocyte distribution width Auto Ratio (RBC) 14.3 % High 10.9-14.2 [facility] Comment on above: Performed By: #### 3566546, 2773158, 292 1234, 70091081, 7418190, 8080450 ####[facility] [address] [place] [address] Erythrocytes (RBC) 5.0 E12/L Normal 4.3-5.9 [facility] Comment on above: Performed By: #### 4514333, 3939079, 292 1234, 49081124, 3917814, 0261652 ####[address] [place] [address] Hematocrit (HCT) 45.2 % Normal 37.7-49.0 [facility] Comment on above: Performed By: #### 4601786, 2090448, 292 1234, 15032781, 8999867, 7394940 ####[place] [address] Hemoglobin mass conc (Bld) 15.4 g/dL Normal 13.5-17.5 [facility] Comment on above: Performed By: #### 8454721, 2625449, 292 1234, 75015011, 3533655, 3088701 ####[place] [address] MCH 31.0 pg Normal 27.0-34.0 [facility] Comment on above: Performed By: #### 1369342, 4521741, 292 1234, 34494343, 9475580, 7048315 ####[place] [address] MCHC mass conc (RBC) 34.1 g/dL Normal 31.4-39.3 [facility] Comment on above: Performed By: #### 7654352, 2278426, 292 1234, 28666083, 0576880, 0450571 ####[place] [address] MCV 91.0 fL Normal 80.0-100.0 [facility] Comment on above: Performed By: #### 5492903, 6891326, 292 1234, 80502431, 8445670, 5198824 ####[address] [place] [address] Platelet mean volume (PMV) 8.9 fL Normal 6.4-10.8 [facility] Comment on above: Performed By: #### 5391208, 6363391, 292 1234, 07418071, 7085438, 9686212 ####[facility] [address] [place] [address] Platelets 153.0 E9/L Normal 150.0-500. 0 [facility] Comment on above: Performed By: #### 3391325, 0230611, 292 1234, 16509895, 4931829, 5045778 ####[facility] [address] [place] [address] WBC (Leukocytes) 6.1 E9/L Normal 4.0-11.0 [facility] Comment on above: Performed By: #### 0781854, 4686241, 292 1234, 36059518, 1928573, 3005955 ####[facility] [address] [place] [address] Creatinineon 08-18-2017 Creatinine 1.1 mg/dL Normal 0.5-1.3 [facility] Comment on above: Performed By: #### 2757105, 4740548, 292 1234, 27617414, 2498076, 3494473 ####[facility] [address] [place] [address] Glucoseon 08-18-2017 Glucose mass conc 105 mg/dL Normal 55-199 [facility] Comment on above: Performed By: #### 1229082, 3091681, 292 1234, 92746038, 2777696, 0038724 ####[facility] [address] [place] [address] Lyteson 08-18-2017 Anion gap 9 mmol/L Normal 6-16 [facility] Comment on above: Performed By: #### 7167182, 6157290, 292 1234, 32143335, 7730640, 4906966 ####[facility] [address] [place] [address] Chloride 106 mmol/L Normal 101-111 [facility] Comment on above: Performed By: #### 6113748, 4896413, 292 1234, 26446825, 6775609, 2574641 ####[facility] [address] [place] [address] CO2 30 mmol/L Normal 21-31 [facility] Comment on above: Performed By: #### 7289993, 7723645, 292 1234, 75001251, 9177918, 5264607 ####[facility] [address] [place] [address] Potassium molar conc 4.5 mmol/L Normal 3.5-5.3 [facility] Comment on above: Performed By: #### 7821995, 5733921, 292 1234, 65346743, 7441068, 2734087 ####[facility] [address] [place] [address] Sodium 140 mmol/L Normal 135-145 [facility] Comment on above: Performed By: #### 6788753, 1870159, 292 1234, 60252667, 2746087, 8512243 ####[facility] [address] [place] [address] eGFRon 08-18-2017 eGFR (black) mL/min/{1.73_m2} Normal >=59 [facility] Comment on above: Order Comment: Order added by Araceli Ex pert. Result Comment: eGFR is race adjusted. AA=. Performed By: #### 2 126508, 0458881, 1966416, 10562590, 7835869, 9557087 ####[facility] [address] [place] [address] eGFR (non-black) mL/min/{1.73_m2} Normal >=59 [facility] Comment on above: Order Comment: Order added by Araceli Ex pert. Result Comment: [place]it[place] Operator shirley kidney disease could be indicated at eGFR's of less than 60 mL/min/1.73m2. Kidney failure is indicated at less than 15 mL/min/1.73m2. Performed By: #### 2 046518, 4388217, 3631927, 90044010, 6284362, 1004644 ####[facility] [address] [place] [address] Encounters Encounter Date Encounter Type Care Provider Facility Start: 03-06-2023 ambulatory ALEX CHAMORRO Faci lity:H1 Start: 02-12-2023 End: 02-13-2023 ambulatory ALEX CHAMORRO Facility: Start: 09-19-2017 End: 09-19-2017 Ambulatory Maria Luisa Marvin Facility:[facility] [place] Start: 08-22-2017 End: 08-22-2017 Ambulatory Maria Luisa Marvin Facility:[facility] [place] Start: 08-18-2017 End: 08-19-2017 Ambulatory Maria Luisa Marvin Facility:[facility] [place] Payers Date Payer Category Payer Medicare [id number] 1958 [employer] ( and others) [id number] 1958 Medicare [id number] 1958 Unknown [id number] 1935 Unknown [id number] 1935 Unknown [id number] Summary Purpose Family History No Family History Records FoundNo Family History Records Found Advance Directives No Advanced Directives Records FoundNo Advanced Directives Records Found Additional Source Comments (unrecognized sect ion and content) No Status Records FoundNo Status Records Found INFORMATION SOURCE (unrecogn ized section and content) DATE CREATED AUTHOR 03/31/2018 [facility]uk[facility]deep [facility] DATE CREATED AUTHOR AUTHOR'S JEF RO 02/18/2023 [facility] FOR RECORDS PERTAINING TO PATIENTS WHO ARE [...] BE BASED ON THE PRIMARY CLINICAL RECORDS. [employer] provides no warranty or guarantee of the accuracy or completeness of information in this document.
--- NOTE | 2023-10-07 14:32 | CA_ITS ---
[facility] Test Date: 2023-10-07 Pat Name: FADUMO FERRIS Department: Room: - Gender: Male Modeling Director: Lesli Patel : 1935 Requested By: MADDY BARKER Order Number: [id number] Reading MD: NORM MA Interpretive Statements Biphasic doppler waveforms PVR waveforms with normal upstroke, amplitude and dicrotic notch Right: - no significant pressure gradients between cuffs - normal KATHLEEN and TBI Left: - no significant pressure gradients between cuffs - normal KATHLEEN and TBI Impression: - pressures measured from the B/L calf distally - elevated left calf index, consistent with calcified, noncompressible arterial [place]. - normal arterial evaluation of the lower extremities without hemodynamic impairment of the B/L lower extremities at rest (right KATHLEEN 1.23, left KATHLEEN 1.20) Electronically Signed On 10-08-2023 7:14:20 EST by NORM MA
== END 2023-10-07 12:57 | disposition home or self-care (01) ==
LOC: CARD 12:56
PROVIDERS: PCP Family Medicine
DX: I73.9 Peripheral vascular disease, unspecified (principal); I82.90 Acute embolism and thrombosis of unspecified vein; R09.89 Other specified symptoms and signs involving the circulatory and respiratory systems
CPT/HCPCS: 93923

== ENCOUNTER 2024-01-09 13:59 | Outpatient (OUT) | payer MEDICARE, BC, OTHER, SELFPAY ==
--- OUTSIDE RECORDS SUMMARY | 2024-01-09 14:03 | XMS_ITS | CCD ---
Author Organization [facility] Care Team Providers Care Natural Resources Specialist Name Role Phone Marvin, Maria Luisa Unavailable Unavailable Marvin, Maria Luisa Unavailable Unavailable Marvin, Maria Luisa Unavailable Unavailable Kelsie Tobias~[phone] UNKNOWN Unavailable Unavailable Marvin, Maria Luisa Unavailable Unavailable Marvin, Maria Luisa Unavailable Unavailable Marvin, Maria Luisa Unavailable Unavailable Kelsie Tobias~[phone] UNKNOWN Unavailable Unavailable Marvin, Maria Luisa Unavailable Unavailable Marvin, Maria Luisa Unavailable Unavailable Marvin, Maria Luisa Unavailable Unavailable Kelsie Tobias~[phone] UNKNOWN Unavailable ALEX Huffman Admitting Unavailable ALEX CHAMORRO Attending Unavailable BLAKE Tucker, DR IGLESIAS Primary Care Unavailable ALEX CHAMORRO Admitting Unavailable ALEX CHAMORRO Attending Unavailable BLAKE Tucker, DR IGLESIAS Primary Care Unavailable PECOS, DR ANNABEL Willett Consulting Unavailable ALEX CHAMORRO Consulting Unavailable Kelsie Tobias MD Primary Care Provider [phone] MADDY BARKER Attending Unavailable KELSIE TOBIAS Primary Care Unavailable Medications Current Medications Medication Drug Class(es) Dates Sig (Normalized) Sig (Original) apixaban 5 mg oral tablet (2 sources) Factor Xa Inhibitor take 1 tablet by mouth every twelve hours ELIQUIS 5 mg tablet Take 1 tablet (5 mg total) by mouth every 12 (twelve) hours. 0 Active benazepril hydrochloride 20 mg oral tablet (2 sources) Angiotensin Converting Enzyme Inhibitor take 1 tablet by mouth in the morning benazepriL (LOTENSIN) 20 mg tablet Take 1 tablet (20 mg total) by mouth in the morning. 0 Active busPIRone hydrochloride 7.5 mg oral tablet (2 sources) Start: 07-08-2023 take 1 tablet by mouth every twelve hours busPIRone (BUSPAR) 7.5 mg tablet Take 1 tablet (7.5 mg total) by mouth every 12 (twelve) hours. 0 07/08/2023 Active carvedilol 12.5 mg oral tablet (2 sources) alpha-Adrenergic John, beta-Adrenergic John take 1 tablet by mouth in the morning, then take 1 tablet by mouth at bedtime carvediloL (COREG) 12.5 mg tablet Take 1 tablet (12.5 mg total) by mouth in the morning and 1 tablet (12.5 mg total) before bedtime. 0 Active celecoxib 100 mg oral capsule (2 sources) Nonsteroidal Anti-inflammatory Drug take 1 capsule by mouth in the morning, then take 1 capsule by mouth at bedtime celecoxib (CeleBREX) 100 mg capsule Take 1 capsule (100 mg total) by mouth in the morning and 1 capsule (100 mg total) before bedtime. 0 Active cholecalciferol 0.05 mg oral capsule (2 sources) Vitamin D take 1 capsule by mouth in the morning cholecalciferol, vitamin D3, 2,000 units capsule Take 1 capsule (2,000 Units total) by mouth in the morning. 0 Active finasteride 5 mg oral tablet (2 sources) 5-alpha Reductase Inhibitor take 1 tablet by mouth once daily finasteride (PROSCAR) 5 mg tablet Take 1 tablet (5 mg total) by mouth nightly. 0 Active hydrALAZINE hydrochloride 50 mg oral tablet (2 sources) Arteriolar Vasodilator take 1 tablet by mouth twice daily hydrALAZINE (APRESOLINE) 50 mg tablet Take 1 tablet (50 mg total) by mouth 2 (two) times daily at 0800 and 1500. 0 Active levothyroxine sodium 0.075 mg oral tablet (2 sources) l-Thyroxine take 1 tablet by mouth in the morning SYNTHROID 75 mcg tablet Take 1 tablet (75 mcg total) by mouth in the morning. 0 Active mirtazapine 7.5 mg oral tablet (2 sources) Start: 06-27-2023 take 2 tablets by mouth once daily mirtazapine (REMERON) 7.5 mg tablet Take 2 tablets (15 mg total) by mouth nightly. 0 06/27/2023 Active thiamine 100 mg oral tablet (2 sources) Start: 08-07-2023 End: 08-06-2024 take 1 tablet by mouth in the morning thiamine HCl (VITAMIN B-1) 100 mg tablet Take 1 tablet (100 mg total) by mouth in the morning. 0 08/07/2023 08/06/2024 Active vitamin b12 1 mg extended release oral tablet (2 sources) Vitamin B12 take 1 tablet by mouth in the morning cyanocobalamin, vitamin B-12, (VITAMIN B-12) 1,000 mcg tablet extended release Take 1 tablet (1 mg total) by mouth in the morning. 0 Active Problems Problem Classification Problem Date Documented Da te Episodic/Chronic Other circulatory disease (1 source) Carotid bruit; Translations: [Other specified symptoms and signs involving the circulatory and respiratory systems] 11-02-2023 Episodic Other connective tissue disease (4 sources) Pain in right foot; Translations: [PAIN IN RIGHT FOOT] Onset: 02-12-2023 Episodic Other connective tissue disease (1 source) Pain in left foot; Translations: [PAIN IN LEFT FOOT] Onset: 02-15-2023 Episodic Other connective tissue disease (1 source) Pain in lower limb; Translations: [Pain in leg, unspecified] 11-02-2023 Episodic Peripheral and visceral atherosclerosis (3 sources) Peripheral vascular disease, unspecified; Translations: [Peripheral vascular disease, unspecified] 10-30-2023 Chronic Phlebitis; thrombophlebitis and thromboembolism (1 source) Venous thrombosis; Translations: [Acute embolism and thrombosis of unspecified vein] 10-30-2023 Episodic Results Test Name Value Interpretation Reference [...] by: ANNABEL LEBLANC Date: 2023-02-12 17:34 Normal [facility] Anesthesia Consultationon Anesthesia Consultation Patient: FADUMO SETH Age: 82 years Sex: Male : 1935 [...] Problem list: All ProblemsArthritis / SNOMED CT 1646299 / ConfirmedBenign hypertension / SNOMED CT 01189679 / ConfirmedCervical spondylosis with myelopathy / SNOMED CT 221588665 / ConfirmedHx of insomnia / SNOMED CT 984228622 / ConfirmedEnlarged prostate / SNOMED CT 783305848 / ConfirmedMyelomalacia of cervical cord / SNOMED CT 06722130 / ConfirmedLeg pain, left / SNOMED CT 3295069417 / ConfirmedCervical spinal stenosis / SNOMED CT 756019870 / Confirmed Physical Examination Intake and Output Denies significant n/v and is tolerating p.o. No qualifying data available Respiratory: Adequate air exchange with temple of preoperative function.. Cardiovascular: Cardiovascular function is stable and has returned to preoperative levels.. Neurologic: Pt has returned to preoperative baseline.. Review / Management Condition: Stable. Assessment Anesthetic outcome No anesthetic complications noted. Plan Transfer/ Discharge: Patient can be discharged from PACU when criteria met. Condition good. Normal [facility] Coding Summary.on 09-22-2017 Coding Summary. CODING DATE: [address] [facility] DSC STATUS: Home (Routine DC) PAYOR: Medicare [...] Fabiana Petersen Date Saved: 09/22/2017 01:50 pm Normal [facility] Anesthesia Consultationon Anesthesia Consultation Patient: FADUMO SETH Age: 82 years Sex: Male : 1935 [...] Problem list: All ProblemsArthritis / SNOMED CT 3708591 / ConfirmedBenign hypertension / SNOMED CT 73443677 / ConfirmedCervical spondylosis with myelopathy / SNOMED CT 363581423 / ConfirmedHx of insomnia / SNOMED CT 818992851 / ConfirmedEnlarged prostate / SNOMED CT 010470677 / ConfirmedMyelomalacia of cervical cord / SNOMED CT 83088867 / ConfirmedLeg pain, left / SNOMED CT 8269799370 / ConfirmedCervical spinal stenosis / SNOMED CT 369227997 / Confirmed, Active Problems (8)Arthritis Benign hypertension [...] Years.e/o age spots.Comments:08/09/2015 10:01 - Yvan MEYER, Alessandra face and backCervical laminectomy ([id number]).Cataract extraction and insertion of intraocular lens ([id number]).Comments:08/18/2017 11:18 - Vane MEYER, [facility] Social History Social & Psychosocial SvygvuVgzvwor65/04/2015 Risk Assessment: Denies Alcohol UseSubstance Abuse08/09/2015 Risk Assessment: Denies Substance FvblqYmpagqw22/04/2015 Risk Assessment: Denies Tobacco Use. Physical Examination [...] Results review: No qualifying data available. Plan [place] [employer]hesi[employer] (ASA) physical status classification: Class III. Anesthetic Preoperative Plan Anesthesia: General. . Anesthetic plan, risks, benefits, and alternatives discussed with the patient and/or family. Pt. and/or family present and agree to proceed as planned.. Normal [facility] Progress Note-Nurseon 2016 Progress Note-Nurse PT RETURN FROM PACU.ALERT.DENIES ANY PAIN.PO FLUIDS GIVEN.CALL LIGHT WITHIN REACH. Normal [facility] Progress Note-Nurse DISCARGE INSTRUCTIONS REGARDING POST MRI GIVEN AND EXPLAINED TO PT AND SON WITH THEIR UNDERSTANDING. Normal [facility] Progress Note-Nurse 0855: Patient given Versed and taken from ASU to MRI by MITCH Jones, Rosa M MOONEY, Tate MOONEY student, and Dr. Mackay.0900: Arrived with patient into MRI Zone3. Patient moved onto MRI cart by MITCH Jones AA Julie Koegle and Danya Salazar MRI techs. Foam wedge [...] arm and velcro strap of MRI table. VINICIO Mederos student, and MITCH Jones present in control room during scan. 0920: MRI scan started. 45: MRI scan completed. 53: Patient taken back to PACU with O2 via simple mask by Dr. Mackay, Josemanuel MOONEY student, and MITCH Jones and report given to Elana Fonseca RN. Normal [facility] Progress Note-Nurse Pt admitted to ASU #18 for prep for MRI with sedation. Pt alert and oriented. Denies pain on admission. Normal [facility] Coding Summary.on 08-26-2017 Coding Summary. CODING DATE: 017 FINAL [facility] STATUS: Home (Routine DC) PAYOR: Medicare APC [...] Avendano Date Saved: 08/26/2017 02:17 pm Normal [facility] XR Spine Cervical 2 or 3 Vie wson 08-25-2017 XR Spine Cervical 2 or 3 Views Exam Date/Time:08/22/2017 09:18 ESTReason for Exam:SPINAL STENOSIS OF LUMBAR REION WITH NEUROGENIC CLAUDICATION M48.062, LUMBAR STENOSIS WITHNEUROGENIC CLAUDICTION , M48.062ReportIMPRESSION: POSTSURGICAL CHANGES. DEGENERATIVE CHANGES.CLINICAL HISTORY: spinal stenosis of lumbar region with neurogenic lchexzyzsmawR53.062, lumbar stenosis with neurogenic claudication, M48.062. COMPARISON: [...] M.D. Transcribed by: FRANCISCO Technologist: ANSLEY Oneil [facility] XR Spine Lumbosacral 2 or 3 Viewson 08-24-2017 XR Spine Lumbosacral 2 or 3 Views Exam Date/Time:08/22/2017 09:18 ESTReason for Exam:SPINAL STENOSIS OF LUMBAR REION WITH NEUROGENIC CLAUDICATION M48.062, LUMBAR STENOSIS WITHNEUROGENIC CLAUDICTION , M48.062ReportIMPRESSION: MULTILEVEL DEGENERATIVE CHANGES.CLINICAL HISTORY: spinal stenosis of lumbar region with neurogenic uekqtpmpgfjoF51.062, lumbar stenosis with neurogenic claudication, M48.062. COMMENT: 3 views. There is noqy-sw-eyyetcnd narrowing of all of the lumbarinterspaces. There [...] M.D. Transcribed by: FRANCISCO Technologist: ANSLEY Oneil [facility] Coding Summary.on 08-19-2017 Coding Summary. CODING DATE: 017 FINAL [facility] STATUS: Home (Routine DC) PAYOR: Medicare APC [...] Avendano Date Saved: 08/19/2017 01:27 pm Normal [facility] XR Chest 2 Viewson 7 XR [...] M.D. Transcribed by: FRANCISCO Technologist: KASSANDRA Normal [facility] BUNon 08-18-2017 Urea nitrogen 18 mg/dL Normal 5-21 [facility] Comment on above: Performed By: #### [id number], 3502527, 292 1234, 57300161, 1855939, 6271494 ####[facility] [address] [place] [address] CBC w/Indiceson 08-18-2017 Erythrocyte distribution width Auto Ratio (RBC) 14.3 % High 10.9-14.2 [facility] Comment on above: Performed By: #### 0413537, 5323291, 292 1234, 81499564, 2954635, 1031530 ####[facility] [address] [place] [address] Erythrocytes (RBC) 5.0 E12/L Normal 4.3-5.9 [facility] Comment on above: Performed By: #### 8061141, 6673107, 292 1234, 46371936, 8503559, 3041024 ####[facility] [address] [place] [address] Hematocrit (HCT) 45.2 % Normal 37.7-49.0 [facility] Comment on above: Performed By: #### 7020583, 5490938, 292 1234, 80649106, 3440951, 6930488 ####[facility] [address] [place] [address] Hemoglobin mass conc (Bld) 15.4 g/dL Normal 13.5-17.5 [facility] Comment on above: Performed By: #### 6595363, 5201655, 292 1234, 16393899, 7214413, 3590095 ####[address] [place] [address] MCH 31.0 pg Normal 27.0-34.0 [facility] Comment on above: Performed By: #### 9934865, 6464162, 292 1234, 68089089, 0689611, 1852726 ####[place] [address] MCHC mass conc (RBC) 34.1 g/dL Normal 31.4-39.3 [facility] Comment on above: Performed By: #### 4810156, 3263318, 292 1234, 36082086, 1731526, 2045428 ####[place] [address] MCV 91.0 fL Normal 80.0-100.0 [facility] Comment on above: Performed By: #### 0494796, 8436935, 292 1234, 02538128, 8410598, 0027932 ####[place] [address] Platelet mean volume (PMV) 8.9 fL Normal 6.4-10.8 [facility] Comment on above: Performed By: #### 1287895, 4122373, 292 1234, 86899320, 8109159, 9412933 ####[place] [address] Platelets 153.0 E9/L Normal 150.0-500. 0 [facility] Comment on above: Performed By: #### 6334961, 6879343, 292 1234, 07428305, 9207206, 4376774 ####[address] [place] [address] WBC (Leukocytes) 6.1 E9/L Normal 4.0-11.0 [facility] Comment on above: Performed By: #### 1817953, 8817156, 292 1234, 84940244, 5293344, 9583705 ####[facility] [address] [place] [address] Creatinineon 08-18-2017 Creatinine 1.1 mg/dL Normal 0.5-1.3 [facility] Comment on above: Performed By: #### 8157345, 0475785, 292 1234, 23126868, 3378450, 8021994 ####[facility] [address] [place] [address] Glucoseon 08-18-2017 Glucose mass conc 105 mg/dL Normal 55-199 [facility] Comment on above: Performed By: #### 9908378, 0584143, 292 1234, 04628581, 3619169, 4087992 ####[facility] [address] [place] [address] Lyteson 08-18-2017 Anion gap 9 mmol/L Normal 6-16 [facility] Comment on above: Performed By: #### 5176952, 7891641, 292 1234, 69366088, 7198566, 6466043 ####[facility] [address] [place] [address] Chloride 106 mmol/L Normal 101-111 [facility] Comment on above: Performed By: #### 6530010, 5779908, 292 1234, 38117032, 9259644, 1130070 ####[facility] [address] [place] [address] CO2 30 mmol/L Normal 21-31 [facility] Comment on above: Performed By: #### 6759086, 1909187, 292 1234, 65356548, 2058980, 1943676 ####[facility] [address] [place] [address] Potassium molar conc 4.5 mmol/L Normal 3.5-5.3 [facility] Comment on above: Performed By: #### 6500853, 4795987, 292 1234, 88120028, 5058832, 5908027 ####[facility] [address] [place] [address] Sodium 140 mmol/L Normal 135-145 [facility] Comment on above: Performed By: #### 8387528, 7137770, 292 1234, 37699243, 2982167, 1262799 ####[facility] [address] [place] [address] eGFRon 08-18-2017 eGFR (black) mL/min/{1.73_m2} Normal >=59 [facility] Comment on above: Order Comment: Order added by Araceli pack. Result Comment: eGFR is race adjusted. AA=. Performed By: #### 2 453881, 8466797, 0168528, 31674173, 5469393, 5907490 ####[facility] [address] [place] [address] eGFR (non-black) mL/min/{1.73_m2} Normal >=59 [facility] Comment on above: Order Comment: Order added by Araceli pack. Result Comment: [employer] shirley kidney disease could be indicated at eGFR's of less than 60 mL/min/1.73m2. Kidney failure is indicated at less than 15 mL/min/1.73m2. Performed By: #### 2 884495, 8456427, 6389291, 25987258, 3392317, 4817538 ####[facility] [address] [place] [address] Vital Signs Date Time Vital Sign Value Performing Clinician Zaira kang 10-30-2023 15:09-0500 Diastolic blood pressure 77 mm[Hg] Maddy Barker MD Work Phone: [facility] 10-30-2023 15:09-0500 Heart rate 78 /min Maddy Barker MD Work Phone: [facility] 10-30-2023 15:09-0500 Systolic blood pressure 148 mm[Hg] [email or web address] 10-30-2023 15:08-0500 Body height 177.8 cm Maddy Barker MD Work Phone: [facility] 10-30-2023 15:08-0500 Body mass index (BMI) [Ratio] 26.72 kg/m2 Maddy Braker MD [email or web address] 10-30-2023 15:08-0500 Body weight 84.46 kg Maddy Barker MD [email or web address] 10-30-2023 15:08-0500 Respiratory rate 18 /min Maddy Barker MD Work Phone: [facility] [employer] Encounters Encounter Date Encounter Type Care Provider Facility Start: 10-30-2023 End: 10-30-2023 Orders Only Swetha Greene LPN [facility] Comment on above: PAD (peripheral kalin ry disease) (CMS-HCC) (Primary Dx); Claudication (CMS-HCC); Acute embolism and thrombosis of unspecified vein Start: 10-30-2023 End: 10-30-2023 Office outpatient visit 25 minutes Maddy Barker MD Work Phone: [facility] Comment on above: PAD (peripheral kalin ry disease) (CMS-HCC) (Primary Dx); Pain and swelling of lower extremity, unspecified laterality; Bilateral carotid bruits Start: 03-06-2023 ambulatory ALEX CHAMORRO Faci lity:H1 Start: 02-12-2023 End: 02-13-2023 ambulatory ALEX CHAMORRO Facility: Start: 09-19-2017 End: 09-19-2017 Ambulatory Maria Luisa Marvin Facility:[facility] Start: 08-22-2017 End: 08-22-2017 Ambulatory Maria Luisa Marvin Facility:[facility] Start: 08-18-2017 End: 08-19-2017 Ambulatory Maria Luisa Marvin Facility:[facility] Plan of Treatment Date Care Activity Detail Author Start: 10-30-2024 Adult BMI Screening Adult BMI Screen ing [facility] Start: 01-29-2024 End: 01-29-2024 Patient encounter procedure 01/29/2024 11:20 AM EDT Office Visit [facility] [address] [place] [address] Dorothy Mcintosh MD [address], [address] [address] [facility] Start: 11-02-2023 End: 11-02-2024 US.doppler Lower extremity vein - bilateral Vas venous duplex lwr bilateral Vascular Ultrasound Routine PAD (peripheral artery disease) ([facility] Pain and swelling of lower extremity, unspecified laterality Bilateral carotid bruits Expected: 11/02/2023, Expires: 11/02/2024 [facility] Work Phone: Comment on above: Expected: 11/02/2023 , Expires: 11/02/2024 Start: 10-30-2023 End: 10-30-2024 US.doppler Lower extremity vein - bilateral Vas venous duplex lwr bilateral Vascular Ultrasound Routine Claudication ([facility]) Expected: 10/30/2023, Expires: 10/30/2024 [facility] Work Phone: Comment on above: Expected: 10/30/2023 , Expires: 10/30/2024 Start: 06-06-2023 Influenza vaccination Influenza Vacc ine [facility] Start: 2001 Fall Risk Screening Fall Risk Screen ing [facility] Start: 1986 Administration of varicella zoster vaccine Zoster (Shingles) Vaccine (1 of 2) [facility] Start: 1955 DTaP,Tdap and Td Vac cines (1 - Tdap) DTaP,Tdap and Td Vaccines (1 - Tdap) [facility] Start: 1954 Adult BMI Follow Up Plan Adult BMI Follow Up Plan [facility] Start: 1948 Depression Screening Depression Scre ening [facility] Start: 1948 Tobacco Screening Tobacco Screening [facility] Start: 1935 Medicare Annual Well ness Visit Medicare Annual Wellness Visit [facility] Immunizations Immunization Date Immunization Notes Care Provider Socorro palmer 08-15-2022 influenza virus vaccine, unspecified formulation Swetha Jc VARGAS [facility] Payers Date Payer Category Payer [employer] ( and others) FOR LIFE [id number] 2022-Present [phone] [address] [place] [address] [id number] 2017 Medicare [id number] 2011 Unknown [place]UST [id number] 2011-Present [phone] [place] [address] [id number] 2001 Medicare MEDICARE MEDICAR E PART A & B [id number] 2001-Present [phone] [address] [place] [address] [id number] 1959 [employer] ( and others) [id number] 1959 Medicare [id number] 1959 Unknown [id number] 1936 Unknown [id number] 1936 Unknown [id number] 1936 Unknown [id number] Social History Date Type Detail Facility Tobacco smoking stat [facility] Tobacco smoking consumption unknown [facility] Start: 03-17-2019 End: 10-30-2023 History of Social function [facility] Start: 03-17-2019 End: 10-30-[address] [facility] Childcare Unknown [facility] Start: 1935 Sex Assigned At Not on file P [facility] History of Present illness Narrative 10-30-2023 Maddy Barker MD - 10/30/2023 11:30 AM EST Note Date & Type Note Facility 10-30-2023 History of Presen t illness Narrative CHIEF COMPLAINT: Chief Complaint Patient presents with Follow-up 4 week follow up. Recent testing completed on 10/07/2023. HISTORY OF PRESENT ILLNESS: Fadumo Seth is a 88 y.o. male who presents to the office today for evaluation of Bilateral lower extremity swelling and pain. Patient reports he still has the pain in the lower extremities. The pain is pretty much all the time. It is mainly concentrated over the calf areas bilaterally. It has not mainly in the feet. Patient had arterial Doppler and carotid duplex done recently. Patient reports that the swelling is better when he elevates his lower extremities and the pain gets better. The pain is more aching in nature. It has nothing to do with whether he is walking or resting. Patient denies any chest pain or shortness breath. ALLERGIES: No Known Allergies MEDICATIONS: Current Outpatient Medications Medication Sig Dispense Refill benazepriL (LOTENSIN) 20 mg tablet Take 1 tablet (20 mg total) by mouth in the morning. busPIRone (BUSPAR) 7.5 mg tablet Take 1 tablet (7.5 mg total) by mouth every 12 (twelve) hours. carvediloL (COREG) 12.5 mg tablet Take 1 tablet (12.5 mg total) by mouth in the morning and 1 tablet (12.5 mg total) before bedtime. celecoxib (CeleBREX) 100 mg capsule Take 1 capsule (100 mg total) by mouth in the morning and 1 capsule (100 mg total) before bedtime. cholecalciferol, vitamin D3, 2,000 units capsule Take 1 capsule (2,000 Units total) by mouth in the morning. cyanocobalamin, vitamin B-12, (VITAMIN B-12) 1,000 mcg tablet extended release Take 1 tablet (1 mg total) by mouth in the morning. ELIQUIS 5 mg tablet Take 1 tablet (5 mg total) by mouth every 12 (twelve) hours. finasteride (PROSCAR) 5 mg tablet Take 1 tablet (5 mg total) by mouth nightly. hydrALAZINE (APRESOLINE) 50 mg tablet Take 1 tablet (50 mg total) by mouth 2 (two) times daily at 0800 and 1500. mirtazapine (REMERON) 7.5 mg tablet Take 2 tablets (15 mg total) by mouth nightly. SYNTHROID 75 mcg tablet Take 1 tablet (75 mcg total) by mouth in the morning. thiamine HCl (VITAMIN B-1) 100 mg tablet Take 1 tablet (100 mg total) by mouth in the morning. No current facility-administered medications for this visit. SOCIAL HISTORY: Social History Tobacco Use Smoking status: Not on file Smokeless tobacco: Not on file Substance Use Topics Alcohol use: Not on file REVIEW OF SYSTEMS: Review of Systems Constitutional: Negative for activity change, appetite change, chills, fatigue, fever and unexpected weight change. HENT: Negative for facial swelling and trouble swallowing. Eyes: Negative for visual disturbance. Respiratory: Negative for chest tightness and shortness of breath. Cardiovascular: Positive for leg swelling. Negative for chest pain. Gastrointestinal: Negative for abdominal pain. Genitourinary: Negative for flank pain and frequency. Musculoskeletal: Positive for arthralgias, back pain and myalgias. Negative for joint swelling. Skin: Negative for color change, pallor, rash and wound. Neurological: Negative for dizziness, syncope, facial asymmetry, speech difficulty, weakness, light-headedness and numbness. Hematological: Negative for adenopathy. PHYSICAL EXAM: Physical Exam Vitals reviewed. Constitutional: General: He is not in acute distress. Neck: Vascular: Carotid bruit present. No JVD. Cardiovascular: Rate and Rhythm: Normal rate. Pulses: Carotid pulses are on the right side with bruit and on the left side with bruit. Radial pulses are 2+ on the right side and 2+ on the left side. Dorsalis pedis pulses are 1+ on the right side and 1+ on the left side. Posterior tibial pulses are 1+ on the right side and 1+ on the left side. Heart sounds: No murmur heard. Pulmonary: Breath sounds: Normal breath sounds. Abdominal: Palpations: Abdomen is soft. There is no mass. Tenderness: There is no abdominal tenderness. Musculoskeletal: General: No tenderness. Cervical back: Neck supple. Right lower leg: Edema present. Left lower leg: Edema present. Skin: General: Skin is warm. Coloration: Skin is not pale. Findings: No erythema. Neurological: Mental Status: He is alert and oriented to person, place, and time. VASCULAR EXAM: Vascular: Right Lower Extremity Right lower extremity pulses DP: 1+ PT: 1+ Right lower extremity edema: 1+ and pitting Left Lower Extremity Left lower extremity pulses DP: 1+ PT: 1+ Left lower extremity edema: 1+ and pitting Right Upper Extremity Right upper extremity pulses Radial: 2+ Left Upper Extremity Left upper extremity pulses Radial: 2+ Carotid: Positive for right carotid bruit. Positive for left carotid bruit. ASSESSMENT AND PLAN: Fadumo was seen today for follow-up. Diagnoses and all orders for this visit: PAD (peripheral artery disease) ([facility]) - Vas venous duplex lwr bilateral; Future Pain and swelling of lower extremity, unspecified laterality - Vas venous duplex lwr bilateral; Future Bilateral carotid bruits - Vas venous duplex lwr bilateral; Future I reviewed his bilateral lower extremity ABIs and carotid duplex. They all appeared to be within normal levels. No evidence of any significant carotid artery disease or arterial disease. I will order venous duplex ultrasound. I will see him back in 3 months for follow-up. documented in this encounter [facility] Evaluation note Note Date & Type Note Facility Evaluation note Diagnosis PAD (peripheral artery disease) ([facility] Primary Unspecified peripheral vascular disease Claudication ([facility]) Unspecified peripheral vascular disease Acute embolism and thrombosis of unspecified vein documented in this encounter [facility] Evaluation note Note Date & Type Note Facility Evaluation note Diagnosis PAD (peripheral artery disease) ([facility])- Primary Unspecified peripheral vascular disease Pain and swelling of lower extremity, unspecified laterality Bilateral carotid bruits documented in this encounter [facility] Instructions Note Date & Type Note Facility Instructions Not on filedocumented in this en counter [facility] Instructions Note Date & Type Note Facility Instructions Not on filedocumented in this en counter [facility] Summary Purpose Family History No Family History Records FoundNo Family History Records FoundNo Family History Records Found Advance Directives No Advanced Directives Records FoundNo Advanced Directives Records FoundNo Advanced Directives Records Found Reason for Referral Specialty Diagnoses / Procedures Referred By Contac t Referred To Contact Diagnoses Claudication ([facility] Procedures Vas venous duplex lwr bilateral Maddy Barker MD [address], [address] [address] Referral ID Status Reason Start Date Expiration Date V isits Requested Visits Authorized [id number] Pending Review 10/30/2023 10/29/2024 1 1 Specialty Diagnoses / Procedures Referred By Contac t Referred To Contact Diagnoses PAD (peripheral artery disease) ([facility]) Pain and swelling of lower extremity, unspecified laterality Bilateral carotid bruits Procedures Vas venous duplex lwr bilateral Maddy Barker MD [address], [address] [address] Referral ID Status Reason Start Date Expiration Date V isits Requested Visits Authorized [id number] Pending Review 11/02/2023 11/01/2024 1 1 Additional Source Comments (unrecognized sect ion and content) No Status Records FoundNo Status Records FoundNo Status Records Found INFORMATION SOURCE (unrecogn ized section and content) DATE CREATED AUTHOR 03/31/2018 [facility] DATE CREATED AUTHOR AUTHOR'S ORGANIZ ATION 02/18/2023 [facility] DATE CREATED AUTHOR AUTHOR'S ORGANIZ ATION 11/02/2023 [facility] Care Teams (unrecognized sec tion and content) Natural Resources Specialist Relationship Specialty Start Date End Date Kelsie Tobias MD [address] [place] [address] PCP - General Family Medicine 10/24/23 Natural Resources Specialist Relationship Specialty Start Date End Date Kelsie Tobias MD [address] [place] [address] PCP - General Family Medicine 10/24/23 Reason for Visit (unrecogniz ed section and content) Reason Comments Follow-up 4 week follow up. Re cent testing completed on 10/07/2023. FOR RECORDS PERTAINING TO PATIENTS WHO ARE [...] BE BASED ON THE PRIMARY CLINICAL RECORDS. [facility]. provides no warranty or guarantee of the accuracy or completeness of information in this document.
--- NOTE | 2024-01-09 14:06 | US_ITS ---
The [address] [address] Patient Name: FADUMO FERRIS MRN: [id number] date: 1935 Sex: M Assigned Patient Location: US Current Patient Location: Accession/Order Number: [id number] Exam Date: 01/09/2024 14:10 Report Date: 01/10/2024 06:27 At the request of: MADDY BARKER Procedure: US venous doppler LE BI EXAMINATION: US venous doppler LE BI HISTORY: peripheral artery disease I73.9 ; chronic pain and swelling of lower extremity COMPARISON: Ultrasound venous Doppler lower extremity bilateral 08/22/2023 FINDINGS: REGION: Bilateral lower extremities THROMBI: None. COMPRESSIBILITY: Normal compressibility. FLOW: Normal waveform and antegrade flow between 5 and 20 cm/s. OTHER: Duplicated left femoral vein. US/US venous doppler LE BI IMPRESSION: 1. No deep vein thrombus within the right or left lower extremity. 2. Clearing of previously seen thrombus within the left femoral vein. Electronically authenticated by: IZA BISHOP Date: 01/10/2024 06:27
--- NOTE | 2024-01-09 14:07 | US_ITS ---
[address] [address] Patient Name: FADUMO FERRIS MRN: [id number] date: 1935 Sex: M Assigned Patient Location: Current Patient Location: US Accession/Order Number: [id number] Exam Date: 01/09/2024 14:10 Report Date: 01/10/2024 06:35 At the request of: MADDY BARKER Procedure: US carotid duplex BI EXAMINATION: US carotid duplex BI HISTORY: acute embolism and thrombosis of unspecified vein I82.90 ; peripheral artery disease, history of carotid artery stenosis COMPARISON: Ultrasound carotid duplex bilateral 09/26/2023 TECHNIQUE: Duplex Doppler ultrasound analysis of carotid and vertebral arteries. . Bilateral carotid arterial duplex examination was performed using B-mode, color flow and spectral analysis. Carotid stenosis is reported according to validated velocity parameters, similar to NASCET criteria. FINDINGS: RIGHT CAROTID ARTERY: Mild plaque without significant stenosis. Likely incidental 6 mm lymph node versus nodule adjacent the distal common carotid artery. RIGHT VERTEBRAL: Antegrade flow. Subclavian: PSV: 228.8 cm/s EDV: 11.3 cm/s CCA: Prox: PSV: 102.3 cm/s EDV: 13.6 cm/s Mid: PSV: 90.5 cm/s EDV: 11.6 cm/s Distal: PSV: 92.5 cm/s EDV: 15.6 cm/s BULB: PSV: 88.5 cm/s EDV: 11.6 cm/s ICA: Prox: PSV: 82.6 cm/s EDV: 7.7 cm/s Mid: PSV: 66.1 cm/s EDV: 11.1 cm/s Distal: PSV: 72.5 cm/s EDV: 17.6 cm/s ECA: PSV: 122.0 cm/s EDV: 3.7 cm/s VERTEBRAL: PSV: 60.7 cm/s EDV: 12.8 cm/s ICA/CCA ratio: PSV: 0.9 EDV: 0.5 LEFT CAROTID ARTERY: Mild plaque without significant stenosis. LEFT VERTEBRAL: Antegrade flow. Subclavian: PSV: 178.0 cm/s EDV: 0.0 cm/s CCA: Prox: PSV: 95.0 cm/s EDV: 11.4 cm/s Mid: PSV: 86.5 cm/s EDV: 15.6 cm/s Distal: PSV: 106.2 cm/s EDV: 15.6 cm/s BULB: PSV: 86.5 cm/s EDV: 11.6 cm/s ICA: Prox: PSV: 94.4 cm/s EDV: 17.5 cm/s Mid: PSV: 84.6 cm/s EDV: 21.5 cm/s Distal: PSV: 80.6 cm/s EDV: 19.5 cm/s ECA: PSV: 104.3 cm/s EDV: 0.0 cm/s VERTEBRAL: PSV: 46.5 cm/s EDV: 7.6 cm/s ICA/CCA ratio: PSV: 0.9 EDV: 1.1 US/US carotid duplex BI IMPRESSION: 1. 0-49% flow stenosis within the carotid arteries bilaterally. 2. Mild atherosclerotic disease; stable. Spectral Doppler US Thresholds Stenosis (%) PSV (cm/sec) VICA/VCCA 0-49 <150 <2.5 50-69 150-225 2.5-4.0 >70 >225 >4.0 Electronically authenticated by: IZA BISHOP Date: 01/10/2024 06:35
== END 2024-01-09 14:00 | disposition home or self-care (01) ==
LOC: US 13:59
PROVIDERS: PCP Family Medicine
DX: R09.89 Other specified symptoms and signs involving the circulatory and respiratory systems (principal); M79.606 Pain in leg, unspecified; I73.9 Peripheral vascular disease, unspecified; M79.89 Other specified soft tissue disorders; I82.90 Acute embolism and thrombosis of unspecified vein
CPT/HCPCS: 93880; 93970

== ENCOUNTER 2024-01-16 08:56 | Outpatient (OUT) | payer MEDICARE, BC, OTHER, SELFPAY ==
--- NOTE | 2024-01-16 09:00 | CA_ITS ---
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 PVR waveforms with normal upstroke, amplitude and dicrotic notch. Right - no significant pressure gradient between cuffs - normal KATHLEEN Left: - no significant pressure gradient between cuffs - normal KATHLEEN Impression: Normal arterial evaluation of the lower extremities without hemodynamic impairment of the B/L lower extremities at rest. (right KATHLEEN 1.23, left KATHLEEN 1.23) Electronically Signed On 01-18-2024 7:30:38 EDT by NORM MA
--- OUTSIDE RECORDS SUMMARY | 2024-01-16 09:19 | XMS_ITS | CCD ---
Author Organization [facility] Care Team Providers Care Manager Nursing Name Role Phone Marvin, Maria Luisa Unavailable Unavailable Marvin, Maria Luisa Unavailable Unavailable Marvin, Maria Luisa Unavailable Unavailable Kelsie Tobias~[phone] UNKNOWN Unavailable Unavailable Marvin, Maria Luisa Unavailable Unavailable Marvin, Maria Luisa Unavailable Unavailable Marvin, Amria Luisa Unavailable Unavailable Kelsie Tobias~[phone] UNKNOWN Unavailable Unavailable Marvin, Maria Luisa Unavailable Unavailable Marvin, Maria Luisa Unavailable Unavailable Marvin, Maria Luisa Unavailable Unavailable Kelsie Tobias~[phone] UNKNOWN Unavailable ALEX Huffman Admitting Unavailable ALEX CHAMORRO Attending Unavailable BLAKE Tucker, DR IGLESIAS Primary Care Unavailable ALEX CHAMORRO Admitting Unavailable ALEX CHAMORRO Attending Unavailable BLAKE Tucker, DR IGLESIAS Primary Care Unavailable [employer], DR ANNABEL Willett Consulting Unavailable ALEX CHAMORRO Consulting Unavailable Kelsie Tobias MD Primary Care Provider [phone] MADDY BARKER Attending Unavailable KELSIE TOBIAS Primary [...] by: ANNABEL LEBLANC Date: 2023-02-12 17:34 Normal [facility] Anesthesia Consultationon Anesthesia Consultation Patient: FADUMO SETH [...] Problem list: All ProblemsArthritis / SNOMED CT 7434740 / ConfirmedBenign hypertension / SNOMED CT 04834301 / ConfirmedCervical spondylosis with myelopathy / SNOMED CT 786134002 / ConfirmedHx of insomnia / SNOMED CT 244036756 / ConfirmedEnlarged prostate / SNOMED CT 761356068 / ConfirmedMyelomalacia of cervical cord / SNOMED CT 01452121 / ConfirmedLeg pain, left / SNOMED CT 2002765123 / ConfirmedCervical spinal stenosis / SNOMED CT 509574829 / Confirmed Physical Examination Intake and Output Denies significant n/v and is tolerating p.o. No qualifying data available Respiratory: Adequate air exchange with latter day of preoperative function.. Cardiovascular: Cardiovascular function is stable and has returned to preoperative levels.. Neurologic: Pt has returned to preoperative baseline.. Review / Management Condition: Stable. Assessment Anesthetic outcome No anesthetic complications noted. Plan Transfer/ Discharge: Patient can be discharged from PACU when criteria met. Condition good. Normal [facility] Coding Summary.on 09-22-2017 Coding Summary. CODING DATE: 017 FINAL [facility]SC STATUS: Home (Routine DC) PAYOR: [...] Saved: 09/22/2017 01:50 pm Normal [facility] Anesthesia Consultationon Anesthesia Consultation Patient: FADUMO [...] Problem list: All ProblemsArthritis / SNOMED CT 9163842 / ConfirmedBenign hypertension / SNOMED CT 59329463 / ConfirmedCervical spondylosis with myelopathy / SNOMED CT 901786500 / ConfirmedHx of insomnia / SNOMED CT 356894123 / ConfirmedEnlarged prostate / SNOMED CT 599465835 / ConfirmedMyelomalacia of cervical cord / SNOMED CT 10488829 / ConfirmedLeg pain, left / SNOMED CT 9180091663 / ConfirmedCervical spinal stenosis / SNOMED CT 059477938 / Confirmed, Active Problems (8)Arthritis Benign hypertension [...] Yvan MEYER, Alessandra face and backCervical laminectomy ([id number]).Cataract extraction and insertion of intraocular lens ([id number]).Comments:08/18/2017 11:18 - Vane MEYER, [facility] [place] Social History Social & Psychosocial HorjmvUikcttr93/04/2015 Risk Assessment: Denies Alcohol UseSubstance Abuse08/09/2015 Risk Assessment: Denies Substance HaensCwqenfe91/04/2015 Risk Assessment: Denies Tobacco Use. Physical Examination [...] Results review: No qualifying data available. Plan [place] [employer]hesiologists (ASA) physical status classification: Class III. Anesthetic Preoperative Plan Anesthesia: General. . Anesthetic plan, risks, benefits, and alternatives discussed with the patient and/or family. Pt. and/or family present and agree to proceed as planned.. Normal [facility] Progress Note-Nurseon 2016 Progress Note-Nurse PT RETURN FROM PACU.ALERT.DENIES ANY PAIN.PO FLUIDS GIVEN.CALL LIGHT WITHIN REACH. Normal [facility] Progress Note-Nurse DISCARGE INSTRUCTIONS REGARDING POST MRI GIVEN AND EXPLAINED TO PT AND SON WITH THEIR UNDERSTANDING. Normal [facility] Progress Note-Nurse 0855: Patient given Versed [...] to Elana Fonseca RN. Normal [facility] Progress Note-Nurse Pt admitted to ASU #18 for prep for MRI with sedation. Pt alert and oriented. Denies pain on admission. Normal [facility] Coding Summary.on 08-26-2017 Coding Summary. CODING DATE: 017 FINAL [facility] STATUS: Home (Routine DC) PAYOR: Medicare APC [...] Saved: 08/26/2017 02:17 pm Normal [facility] XR Spine Cervical 2 or 3 Vie wson 08-25-2017 XR Spine Cervical 2 or 3 Views Exam Date/Time:08/22/2017 09:18 ESTReason for Exam:SPINAL STENOSIS OF LUMBAR REION WITH NEUROGENIC CLAUDICATION M48.062, LUMBAR STENOSIS WITHNEUROGENIC CLAUDICTION , M48.062ReportIMPRESSION: POSTSURGICAL CHANGES. DEGENERATIVE CHANGES.CLINICAL HISTORY: spinal stenosis of lumbar region with neurogenic vxlskktyaaxbM20.062, lumbar stenosis with neurogenic claudication, M48.062. COMPARISON: [...] Signed by: Boby Saucedo M.D. Transcribed by: FARNCISCO Technologist: ANSLEY Oneil [facility] XR Spine Lumbosacral 2 or 3 Viewson 08-24-2017 XR Spine Lumbosacral 2 or 3 Views Exam Date/Time:08/22/2017 09:18 ESTReason for Exam:SPINAL STENOSIS OF LUMBAR REION WITH NEUROGENIC CLAUDICATION M48.062, LUMBAR STENOSIS WITHNEUROGENIC CLAUDICTION , M48.062ReportIMPRESSION: MULTILEVEL DEGENERATIVE CHANGES.CLINICAL HISTORY: spinal stenosis of lumbar region with neurogenic lhhlfxezzfhyB78.062, lumbar stenosis with neurogenic claudication, M48.062. COMMENT: 3 views. There is rkhg-ng-urbwmcld narrowing of all of the lumbarinterspaces. There [...] by: FRANCISCO Technologist: ANSLEY Oneil [facility] Coding Summary.on 08-19-2017 Coding Summary. CODING DATE: 017 FINAL [facility] STATUS: Home (Routine DC) PAYOR: Medicare APC [...] Saved: 08/19/2017 01:27 pm Normal [facility] XR Chest 2 Viewson 7 XR [...] by: FRANCISCO Technologist: KASSANDRA Normal [facility] BUNon 08-18-2017 Urea nitrogen 18 mg/dL Normal 5-21 [facility] Comment on above: Performed By: #### [id number], 1627232, 292 1234, 36989909, 8247887, 5256465 ####[facility] [address] [place] [address] CBC w/Indiceson 08-18-2017 Erythrocyte distribution width Auto Ratio (RBC) 14.3 % High 10.9-14.2 [facility] Comment on above: Performed By: #### 6171191, 3254232, 292 1234, 22586343, 9688799, 3865837 ####[facility] [address] [place] [address] Erythrocytes (RBC) 5.0 E12/L Normal 4.3-5.9 [facility] Comment on above: Performed By: #### 9045936, 6370746, 292 1234, 42760180, 0281640, 4218960 ####[facility] [address] [place] [address] Hematocrit (HCT) 45.2 % Normal 37.7-49.0 [facility] Comment on above: Performed By: #### 0025813, 9114557, 292 1234, 39015513, 8030426, 1255598 ####[facility] [address] [place] [address] Hemoglobin mass conc (Bld) 15.4 g/dL Normal 13.5-17.5 [facility] Comment on above: Performed By: #### 6330257, 9804269, 292 1234, 48148071, 9767060, 3839225 ####[address] [place] [address] MCH 31.0 pg Normal 27.0-34.0 [facility] Comment on above: Performed By: #### 5303827, 9047021, 292 1234, 61036798, 5511888, 7418934 ####[place] [address] MCHC mass conc (RBC) 34.1 g/dL Normal 31.4-39.3 [facility] Comment on above: Performed By: #### 4959460, 4312791, 292 1234, 69400827, 2472384, 3851125 ####[place] [address] MCV 91.0 fL Normal 80.0-100.0 [facility] Comment on above: Performed By: #### 5761683, 3586852, 292 1234, 26952808, 1109131, 6175369 ####[place] [address] Platelet mean volume (PMV) 8.9 fL Normal 6.4-10.8 [facility] Comment on above: Performed By: #### 6743169, 1452161, 292 1234, 58847412, 4898757, 7006068 ####[place] [address] Platelets 153.0 E9/L Normal 150.0-500. 0 [facility] Comment on above: Performed By: #### 1246526, 3673485, 292 1234, 07749571, 8419107, 2566339 ####[address] [place] [address] WBC (Leukocytes) 6.1 E9/L Normal 4.0-11.0 [facility] Comment on above: Performed By: #### 2834980, 0064684, 292 1234, 74021126, 2842652, 6161946 ####[facility] [address] [place] [address] Creatinineon 08-18-2017 Creatinine 1.1 mg/dL Normal 0.5-1.3 [facility] Comment on above: Performed By: #### 0437267, 1142000, 292 1234, 22266645, 0826654, 0076063 ####[facility] [address] [place] [address] Glucoseon 08-18-2017 Glucose mass conc 105 mg/dL Normal 55-199 [facility] Comment on above: Performed By: #### 6735065, 4812487, 292 1234, 63066271, 5194687, 2564806 ####[facility] [address] [place] [address] Lyteson 08-18-2017 Anion gap 9 mmol/L Normal 6-16 [facility] Comment on above: Performed By: #### 9764458, 3626409, 292 1234, 41250731, 5079408, 0065457 ####[facility] [address] [place] [address] Chloride 106 mmol/L Normal 101-111 [facility] Comment on above: Performed By: #### 2238993, 5877986, 292 1234, 47195062, 5845535, 3953504 ####[facility] [address] [place] [address] CO2 30 mmol/L Normal 21-31 [facility] Comment on above: Performed By: #### 7183753, 7649961, 292 1234, 90399895, 1994577, 0153529 ####[facility] [address] [place] [address] Potassium molar conc 4.5 mmol/L Normal 3.5-5.3 [facility] Comment on above: Performed By: #### 2240344, 7365455, 292 1234, 83199436, 0078568, 2528887 ####[facility] [address] [place] [address] Sodium 140 mmol/L Normal 135-145 [facility] Comment on above: Performed By: #### 9786881, 0659559, 292 1234, 71601904, 6963805, 9516886 ####[facility] [address] [place] [address] eGFRon 08-18-2017 eGFR (black) mL/min/{1.73_m2} Normal >=59 [facility] Comment on above: Order Comment: Order added by Araceli pack. Result Comment: eGFR is race adjusted. AA=. Performed By: #### 2 494187, 6865008, 4001184, 44506928, 5382752, 3829588 ####[facility] [address] [place] [address] eGFR (non-black) mL/min/{1.73_m2} Normal >=59 [facility] Comment on above: Order Comment: Order added by Araceli pack. Result Comment: Dairy Technologist shirley kidney disease could be indicated at eGFR's of less than 60 mL/min/1.73m2. Kidney failure is indicated at less than 15 mL/min/1.73m2. Performed By: #### 2 213957, 5228101, 6926571, 83718399, 8355872, 7942792 ####[facility] [address] [place] [address] Vital Signs Date Time Vital Sign Value Performing Clinician Zaira kang 10-30-2023 15:09-0500 Diastolic blood pressure 77 mm[Hg] Maddy Barker MD Work Phone: [facility] 10-30-2023 15:09-0500 Heart rate 78 /min Maddy Barker MD Work Phone: [facility] 10-30-2023 15:09-0500 Systolic blood pressure 148 mm[Hg] [facility] 10-30-2023 15:08-0500 Body height 177.8 cm Maddy Barker MD Work Phone: [facility] [employer] [facility] 10-30-2023 15:08-0500 Body mass index (BMI) [Ratio] 26.72 kg/m2 Maddy Barker MD [facility] 10-30-2023 15:08-0500 Body weight 84.46 kg Maddy Barker MD [facility] 10-30-2023 15:08-0500 Respiratory rate 18 /min Maddy Barker MD Work Phone: [facility] [employer] Encounters Encounter Date Encounter Type Care Provider Facility Start: 10-30-2023 End: 10-30-2023 Orders Only Swetha Greene LPN [facility] Comment on above: PAD (peripheral kalin ry disease) (CMS-HCC) (Primary Dx); Claudication (CMS-HCC); Acute embolism and thrombosis of unspecified vein Start: 10-30-2023 End: 10-30-2023 Office outpatient visit 25 minutes Maddy Barker MD Work Phone: [facility] Comment on above: PAD (peripheral kalin ry disease) (CMS-HCC) (Primary Dx); Pain and swelling of lower extremity, unspecified laterality; Bilateral carotid bruits Start: 03-06-2023 ambulatory ALEX CHAMORRO Faci lity:H1 Start: 02-12-2023 End: 02-13-2023 ambulatory ALEX CHAMORRO Facility: Start: 09-19-2017 End: 09-19-2017 Ambulatory Maria Luisa Marvin Facility:[facility] Start: 08-22-2017 End: 08-22-2017 Ambulatory Maria Luisa Marvin Facility:[facility] Start: 08-18-2017 End: 08-19-2017 Ambulatory Maria Luisa Marvin Facility:[facility] Plan of Treatment Date Care Activity Detail Author Start: 10-30-2024 Adult BMI Screening Adult BMI Screen ing [facility] Start: 01-29-2024 End: 01-29-2024 Patient encounter procedure 01/29/2024 11:20 AM EDT Office Visit [facility] [address] [place] [address] Dorothy Mcintosh MD [address] [address] [facility] [...] duplex lwr bilateral Vascular Ultrasound Routine Claudication ([facility]) Expected: 10/30/2023, Expires: 10/30/2024 [facility] Work Phone: Comment on above: Expected: 10/30/2023 , Expires: 10/30/2024 Start: 06-06-2023 Influenza vaccination Influenza Vacc ine [facility] Start: 2001 Fall Risk Screening Fall Risk Screen ing [facility] [employer] [facility] Start: 1986 Administration of varicella zoster vaccine Zoster (Shingles) Vaccine (1 of 2) [facility] Start: 1955 DTaP,Tdap and Td Vac cines (1 - Tdap) DTaP,Tdap and Td Vaccines (1 - Tdap) [facility] Start: 1954 Adult BMI Follow Up Plan Adult BMI Follow Up Plan [facility] Start: 1948 Depression Screening Depression Scre ening [facility] Start: 1948 Tobacco Screening Tobacco Screening [facility] Start: 1936 Medicare Annual Well ness Visit Medicare Annual Wellness Visit [facility] Immunizations Immunization Date Immunization Notes Care Provider Socorro palmer 08-15-2022 influenza virus vaccine, unspecified formulation Swetha Jc VARGAS [facility] Payers Date Payer Category Payer [employer] ( and others) FOR LIFE [id number] 2022-Present [phone] [address] [place] [address] [id number] 2017 Medicare [id number] 2011 Unknown [place]/TRUST [id number] 2011-Present [phone] [address] [place] [address] [id number] 2001 Medicare MEDICARE MEDICAR E PART A & B [id number] 2001-Present [phone] [address] [place] [address] [id number] 1959 [employer] ( and others) [id number] 1959 Medicare [id number] 1959 Unknown [id number] 1936 Unknown [id number] 1936 Unknown [id number] 1936 Unknown [id number] Social History Date Type Detail Facility Tobacco smoking stat [facility] Tobacco smoking consumption unknown [facility] Start: 03-17-2019 End: 10-30-2023 History of Social function [facility] Start: 03-17-2019 End: 10-30-2023 Childcare [facility] Childcare Unknown [facility] Start: 1935 Sex Assigned At Not on file P [facility] History of Present illness Narrative 10-30-2023 Maddy [...] for this visit: PAD (peripheral artery disease) ([facility]) - Vas venous duplex lwr bilateral; Future [...] months for follow-up. documented in this encounter [facility] Evaluation note Note Date & Type Note Facility Evaluation note Diagnosis PAD (peripheral artery disease) ([facility])- Primary Unspecified peripheral vascular disease Claudication ([facility]) Unspecified peripheral vascular disease Acute embolism and thrombosis of unspecified vein documented in this encounter [facility] Evaluation note Note Date & Type Note Facility Evaluation note Diagnosis PAD (peripheral artery disease) ([facility])- Primary Unspecified peripheral vascular disease Pain and swelling of lower extremity, unspecified laterality Bilateral carotid bruits documented in this encounter [facility] Instructions Note Date & Type Note Facility Instructions Not on filedocumented in this en counter [facility] Instructions Note Date & Type Note Facility Instructions Not on filedocumented in this en counter [facility] Summary Purpose Family History [...] bilateral Maddy Barker MD [address], [address] [address] Referral ID Status Reason Start Date Expiration Date V isits Requested Visits Authorized [id number] Pending Review 10/30/2023 10/29/2024 1 1 Specialty Diagnoses / Procedures Referred By Contac t Referred To Contact Diagnoses PAD (peripheral artery disease) ([facility] Pain and swelling of lower extremity, unspecified laterality Bilateral carotid bruits Procedures Vas venous duplex lwr bilateral Maddy Barker MD [address], [address] [address] Referral ID Status Reason Start Date Expiration Date V isits Requested Visits Authorized [id number] Pending Review 11/02/2023 11/01/2024 1 1 Additional Source Comments (unrecognized sect ion and content) No Status Records FoundNo Status Records FoundNo Status Records Found INFORMATION SOURCE (unrecogn ized section and content) DATE CREATED AUTHOR 03/31/2018 [facility] DATE CREATED AUTHOR AUTHOR'S ORGANIZ ATION 02/18/2023 [facility] DATE CREATED AUTHOR AUTHOR'S ORGANIZ ATION 11/02/2023 [facility] Care Teams (unrecognized sec tion and content) Manager Nursing Relationship Specialty Start Date End Date Kelsie Tobias MD [address] [place] [address] PCP - General Family Medicine 10/24/23 Manager Nursing Relationship Specialty Start Date End Date Kelsie Tobias MD [address] [place] [address] PCP - General Family Medicine 10/24/23 Reason [...] BE BASED ON THE PRIMARY CLINICAL RECORDS. [facility] From[facility]. provides no warranty or guarantee of the accuracy or completeness of information in this document.
== END 2024-01-16 08:57 | disposition home or self-care (01) ==
LOC: CARD 08:57
PROVIDERS: PCP Family Medicine
DX: I65.23 Occlusion and stenosis of bilateral carotid arteries (principal); I82.90 Acute embolism and thrombosis of unspecified vein; I73.9 Peripheral vascular disease, unspecified; R09.89 Other specified symptoms and signs involving the circulatory and respiratory systems
CPT/HCPCS: 93923

== ENCOUNTER 2024-07-09 09:57 | Outpatient (OUT) | payer MEDICARE, BC, OTHER, SELFPAY ==
--- NOTE | 2024-07-09 10:01 | VEIN_ITS ---
The [address] [address] Patient Name: FADUMO FERRIS MRN: [id number] date: 1935 Sex: M Assigned Patient Location: Current Patient Location: Accession/Order Number: [id number] Exam Date: 07/09/2024 10:02 Report Date: 07/09/2024 11:51 At the request of: KELSIE LOZANO Procedure: VC Arterial Scan Pillo EXAM: VC Arterial Scan Pillo HISTORY: Claudication I73.9 COMPARISON: None. TECHNIQUE: Grayscale, color Doppler, and spectral Doppler waveform analysis was used to evaluate the bilateral lower extremity arteries. FINDINGS: Bilateral waveforms are multiphasic. On the right lower extremity elevated velocity was seen within the distal posterior tibial artery suggesting a significant stenosis. No significant velocity elevations were seen within the left lower extremity. VEIN/VC Arterial Scan Pillo IMPRESSION: Multiphasic waveforms bilaterally. Possible distal right posterior tibial artery stenosis. No other significant velocity elevations to suggest additional significant stenoses. Electronically authenticated by: Leona WOLFF Date: 07/09/2024 11:51
--- NOTE | 2024-07-09 10:01 | VEIN_ITS ---
Patient Name: FADUMO FERRIS MR#: [id number] : 1935 Exam Date: 07/09/2024 Ordering Doctor: DR Darin Tobias . RADIOLOGY REPORT PROCEDURE: VC EXT VENOUS REFLUX SANGITA LMTD COMPARISON: VC EXT VENOUS REFLUX SANGITA LMTD, 03/06/2023. INDICATIONS: R60.0 Edema TECHNIQUE: Duplex imaging of the lower extremity to assess the deep and superficial venous system for the presence of deep or superficial venous incompetence and to document the location and severity of disease. The study includes evaluation of the great saphenous vein (GSV), anterior accessory saphenous vein (AASV) and small saphenous vein (SSV). Patient scanned in reverse Trendelenburg and standing. FINDINGS: RIGHT LOWER EXTREMITY: Saphenofemoral Junction Reflux: Yes 8.8mm 0.6 sec GSV: Diam (mm) Reflux/ Time (sec) Proximal Thigh 7.5 Yes 0.8 Mid Thigh 6.4 Yes 0.6 Distal Thigh 5.4 Yes 1.6 Prox Calf 5.9 Yes 1.9 Mid Calf 4.0 Yes 0.6 Saphenopopliteal Junction Reflux: 4.5mm Yes 1.0 SSV: Proximal Calf 5.1 Yes 0.3 Mid Calf 3.8 Yes 2.0 AASV: Not present Thrombi: Partial chronic thrombus in right mid femoral to popliteal vein. Chronic thrombus in proximal SSV. Compressibility: Partial compression of mid femoral to popliteal vein. Flow: Moderate deep venous reflux in femoral and popliteal vein. Preforator: Prox medial lower leg 3.1 mm with 1.5s reflux. Tech Note: Incompetent varicose vein medial knee measures 4.1 mm with 0.9s reflux. Varicose vein mid medial thigh measures 4.6 mm with 2.8s reflux. LEFT LOWER EXTREMITY: Saphenofemoral Junction Reflux: Yes 11.6 mm 1.9 sec GSV: Diam (mm) Reflux/Time (sec) Proximal Thigh 7.0 Yes 1.9 Mid Thigh 4.8 Yes 0.6 Distal Thigh 5.9 Yes 3.8 Prox Calf 2.8 No Mid Calf 1.7 No Saphenopopliteal Junction Relux: 2.6 mm No SSV: Proximal Calf 1.7 No Mid Calf 2.5 Yes 0.9 AASV: Proximal Thigh 5.8 Yes 2.1 Mid Thigh 5.4 Yes 1.6 Distal Thigh Thrombi: Chronic thrombus in mid femoral vein with collateral vein formed. Compressibility: Non-compressible mid femoral vein. Flow: Mild deep venous reflux. Talent Specialist: Dist medial lower leg 4.0 mm with 2.5s reflux. Tech Note: Incompetent varicose vein proximal medial lower leg measures 4.0 mm with 4.4s reflux. Varicose vein distal medial thigh measures 4.8 mm with 1.2s reflux. CONCLUSION: 1. 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 Moderate bilateral small saphenous vein venous insufficiency without dilatation 3. Moderate left anterior accessory saphenous vein venous insufficiency with mild dilatation 4. 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 Bilateral incompetent varicose veins 6. Moderate right and mild left deep vein reflux Dictated by: Johnathon Graves MD on 07/12/2024 at 07:00 Approved by: Johnathon Graves MD on 07/12/2024 at 07:02
--- OUTSIDE RECORDS SUMMARY | 2024-07-09 10:08 | XMS_ITS | CCD ---
Author Organization [facility] Care Team Providers Care Investigations Manager Name Role Phone Marvin, Sandrine Unavailable Unavailable Marvin, Sandrine Unavailable Unavailable Marvin, Sandrine Unavailable Unavailable Kelsie Tobias~[phone] UNKNOWN Unavailable Unavailable Marvin, Sandrine Unavailable Unavailable Marvin, Sandrine Unavailable Unavailable Marvin, Sandrine Unavailable Unavailable Kelsie Tobias~[phone] UNKNOWN Unavailable Unavailable Marvin, Sandrine Unavailable Unavailable Marvin, Sandrine Unavailable Unavailable Marvin, Sandrine Unavailable Unavailable Kelsie Tobias~[phone] UNKNOWN Unavailable Unavailable ALEX CHAMORRO Admitting Unavailable ALEX CHAMORRO Attending Unavailable BLAKE ., DR IGLESIAS Primary Care Unavailable ALEX CHAMORRO Admitting Unavailable ALEX CHAMORRO Attending Unavailable BLAKE Tucker, DR IGLESIAS Primary Care Unavailable [place], DR ANNABEL Willett Consulting Unavailable ALEX CHAMORRO Consulting Unavailable Kelsie Tobias MD Primary Care Provider [phone] DOROTHY MCINTOSH Attending Unavailable KELSIE TOBIAS Referring Unavailable KELSIE TOBIAS Primary Care Unavailable MADDY BARKER Attending Unavailable KELSIE TOBIAS Primary Care Unavailable KELSIE TOBIAS Referring Unavailable AUSTIN, SANDRINE Attending Unavailable AMBER NORMAN Attending Unavailable AMBER NORMAN Attending Unavailable AMBER NORMAN Attending Unavailable Medications Current Medications Medication Drug Class(es) [...] and thrombosis of unspecified vein] 10-30-2023 Episodic Unclassified (1 source) Carotid Artery Disease Onset: 01-29-2024 Unclassified (1 source) PAD Onset: 01-29-2024 Results Test Name Value Interpretation Reference Range [...] by: ANNABEL LEBLANC Date: 2023-02-12 17:34 Normal [facility] Anesthesia Consultationon Anesthesia Consultation Patient: FADUMO [...] Problem list: All ProblemsArthritis / SNOMED CT 7911992 / ConfirmedBenign hypertension / SNOMED CT 00239735 / ConfirmedCervical spondylosis with myelopathy / SNOMED CT 636899050 / ConfirmedHx of insomnia / SNOMED CT 111613858 / ConfirmedEnlarged prostate / SNOMED CT 313656318 / ConfirmedMyelomalacia of cervical cord / SNOMED CT 87323232 / ConfirmedLeg pain, left / SNOMED CT 0758191313 / ConfirmedCervical spinal stenosis / SNOMED CT 420136047 / Confirmed Physical Examination Intake and Output Denies significant n/v and is tolerating p.o. No qualifying data available Respiratory: Adequate air exchange with mandaen of preoperative function.. Cardiovascular: Cardiovascular function is stable and has returned to preoperative levels.. Neurologic: Pt has returned to preoperative baseline.. Review / Management Condition: Stable. Assessment Anesthetic outcome No anesthetic complications noted. Plan Transfer/ Discharge: Patient can be discharged from PACU when criteria met. Condition good. Normal [facility] Coding Summary.on 09-22-2017 Coding Summary. CODING DATE: 017 FINAL [facility] STATUS: Home (Routine DC) PAYOR: Medicare APC [...] Fabiana Petersen Date Saved: 09/22/2017 01:50 pm [facility] Anesthesia Consultationon Anesthesia Consultation Patient: FADUMO [...] Problem list: All ProblemsArthritis / SNOMED CT 8580613 / ConfirmedBenign hypertension / SNOMED CT 54862985 / ConfirmedCervical spondylosis with myelopathy / SNOMED CT 464597239 / ConfirmedHx of insomnia / SNOMED CT 636119507 / ConfirmedEnlarged prostate / SNOMED CT 715336956 / ConfirmedMyelomalacia of cervical cord / SNOMED CT 74611214 / ConfirmedLeg pain, left / SNOMED CT 9936272991 / ConfirmedCervical spinal stenosis / SNOMED CT 405599892 / Confirmed, Active Problems (8)Arthritis Benign hypertension [...] Years.e/o age spots.Comments:08/09/2015 10:01 - Yvan MEYER, [facility] face and backCervical laminectomy ([id number]).Cataract extraction and insertion of intraocular lens ([id number]).Comments:08/18/2017 11:18 - Vane MEYER, [facility] Social History Social & Psychosocial HpxjdtFloicsr22/04/2015 Risk Assessment: Denies Alcohol UseSubstance Abuse08/09/2015 Risk Assessment: Denies Substance QspeyPevjoaf70/04/2015 Risk Assessment: Denies Tobacco Use. Physical Examination [...] Results review: No qualifying data available. Plan [place] [employer] (ASA) physical status classification: Class III. Anesthetic Preoperative Plan Anesthesia: General. . Anesthetic plan, risks, benefits, and alternatives discussed with the patient and/or family. Pt. and/or family present and agree to proceed as planned.. Normal [facility] Progress Note-Nurseon 2016 Progress Note-Nurse PT RETURN FROM PACU.ALERT.DENIES ANY PAIN.PO FLUIDS GIVEN.CALL LIGHT WITHIN REACH. Normal [facility] Progress Note-Nurse DISCARGE INSTRUCTIONS REGARDING POST MRI GIVEN AND EXPLAINED TO PT AND SON WITH THEIR UNDERSTANDING. Normal [facility] Progress Note-Nurse 0855: Patient given Versed and [...] arm and velcro strap of MRI table. NMoses, AA Josemanuel MOONEY student, and Robert, RN present in control room during scan. 919: MRI scan started. 45: MRI scan completed. 53: Patient taken back to PACU with O2 via simple mask by Dr. Mackay, Josemanuel MOONEY student, and Robert RN and report given to Elana Fonseca RN. Normal [facility] Progress Note-Nurse Pt admitted to ASU #18 for prep for MRI with sedation. Pt alert and oriented. Denies pain on admission. Normal [facility] Coding Summary.on 08-26-2017 Coding Summary. CODING DATE: 017 FINAL [facility] STATUS: Home (Routine DC) PAYOR: Medicare APC [...] Avendano Date Saved: 08/26/2017 02:17 pm Normal [facility] XR Spine Cervical 2 or 3 Susue anita 08-25-2017 XR Spine Cervical 2 or 3 Views Exam Date/Time:08/22/2017 09:18 ESTReason for Exam:SPINAL STENOSIS OF LUMBAR REION WITH NEUROGENIC CLAUDICATION M48.062, LUMBAR STENOSIS WITHNEUROGENIC CLAUDICTION , M48.062ReportIMPRESSION: POSTSURGICAL CHANGES. DEGENERATIVE CHANGES.CLINICAL HISTORY: spinal stenosis of lumbar region with neurogenic bycdutbmhgbmW36.062, lumbar stenosis with neurogenic claudication, M48.062. COMPARISON: [...] M.D. Transcribed by: FRANCISCO Technologist: ANSLEY Oneil [facility] XR Spine Lumbosacral 2 or 3 Viewson 08-24-2017 XR Spine Lumbosacral 2 or 3 Views Exam Date/Time:08/22/2017 09:18 ESTReason for Exam:SPINAL STENOSIS OF LUMBAR REION WITH NEUROGENIC CLAUDICATION M48.062, LUMBAR STENOSIS WITHNEUROGENIC CLAUDICTION , M48.062ReportIMPRESSION: MULTILEVEL DEGENERATIVE CHANGES.CLINICAL HISTORY: spinal stenosis of lumbar region with neurogenic ldahdfvhihzcR94.062, lumbar stenosis with neurogenic claudication, M48.062. COMMENT: 3 views. There is cbjn-my-yqirobds narrowing of all of the lumbarinterspaces. There [...] M.D. Transcribed by: FRANCISCO Technologist: ANSLEY Oneil [facility] Coding Summary.on 08-19-2017 Coding Summary. CODING DATE: 017 FINAL [facility] STATUS: Home (Routine DC) PAYOR: [...] Avendano Date Saved: 08/19/2017 01:27 pm Normal [facility] XR Chest 2 Viewson 7 XR Chest [...] Saucedo M.D. Transcribed by: FRANCISCO Technologist: KASSANDRA Oneil [facility] BUNon 08-18-2017 Urea nitrogen 18 mg/dL Normal 5-21 [facility] Comment on above: Performed By: #### [id number], 8058284, 292 1234, 09848176, 5690888, 7182324 ####[facility] [address] [place] [address] CBC w/Indiceson 08-18-2017 Erythrocyte distribution width Auto Ratio (RBC) 14.3 % High 10.9-14.2 [facility] Comment on above: Performed By: #### 1117969, 9463282, 292 1234, 26334110, 2711733, 8352333 ####[facility] [address] [place] [address] Erythrocytes (RBC) 5.0 E12/L Normal 4.3-5.9 [facility] Comment on above: Performed By: #### 2403611, 6851195, 292 1234, 66583308, 7521238, 0589019 ####[facility] [address] [place] [address] Hematocrit (HCT) 45.2 % Normal 37.7-49.0 [facility] Comment on above: Performed By: #### 3879480, 6142251, 292 1234, 41227516, 6755223, 6214865 ####[facility] [address] [place] 4247857 Hemoglobin mass conc (Bld) 15.4 g/dL Normal 13.5-17.5 [facility] Comment on above: Performed By: #### 1002900, 5164361, 292 1234, 94614564, 5296755, 4277384 ####[place] [address] MCH 31.0 pg Normal 27.0-34.0 [facility] Comment on above: Performed By: #### 0681559, 8438817, 292 1234, 51796553, 9143790, 8669746 ####[place] 0379357 MCHC mass conc (RBC) 34.1 g/dL Normal 31.4-39.3 [facility] Comment on above: Performed By: #### 9961111, 4044220, 292 1234, 28805454, 6323591, 5145880 ####[place] [address] [place] 4247857 MCV 91.0 fL Normal 80.0-100.0 [facility] Comment on above: Performed By: #### 7355152, 5101177, 292 1234, 34386607, 3488723, 9262736 ####[facility] [address] [place] 4247857 Platelet mean volume (PMV) 8.9 fL Normal 6.4-10.8 [facility] Comment on above: Performed By: #### 5726909, 4581232, 292 1234, 27462000, 7838662, 7849300 ####[facility] [address] [place] [address] Platelets 153.0 E9/L Normal 150.0-500. 0 [facility] Comment on above: Performed By: #### 8056265, 3479998, 292 1234, 47729549, 5948068, 8452045 ####[facility] [address] [place] [address] WBC (Leukocytes) 6.1 E9/L Normal 4.0-11.0 [facility] Comment on above: Performed By: #### 5282572, 1436291, 292 1234, 60332769, 0621109, 3990813 ####[facility] [address] [place] [address] Creatinineon 08-18-2017 Creatinine 1.1 mg/dL Normal 0.5-1.3 [facility] Comment on above: Performed By: #### 2606931, 0335779, 292 1234, 84465284, 4105623, 6940086 ####[facility] [address] [place] [address] Glucoseon 08-18-2017 Glucose mass conc 105 mg/dL Normal 55-199 [facility] Comment on above: Performed By: #### 7871636, 3806719, 292 1234, 72794076, 2218979, 6766773 ####[facility] [address] [place] [address] Lyteson 08-18-2017 Anion gap 9 mmol/L Normal 6-16 [facility] Comment on above: Performed By: #### 7465430, 2540365, 292 1234, 06498332, 4591357, 1476511 ####[facility] [address] [place] [address] Chloride 106 mmol/L Normal 101-111 [facility] Comment on above: Performed By: #### 5445855, 3257821, 292 1234, 21522989, 6073417, 7132610 ####[facility] [address] [place] [address] CO2 30 mmol/L Normal 21-31 [facility] Comment on above: Performed By: #### 1520205, 4448577, 292 1234, 79200303, 6160228, 9215317 ####[facility] [address] [place] [address] Potassium molar conc 4.5 mmol/L Normal 3.5-5.3 [facility] Comment on above: Performed By: #### 1310366, 4103528, 292 1234, 59716520, 1632914, 6610432 ####[facility] [address] [place] [address] Sodium 140 mmol/L Normal 135-145 [facility] Comment on above: Performed By: #### 5504916, 2704350, 292 1234, 15265579, 8864557, 5765419 ####[facility] [address] [place] [address] eGFRon 08-18-2017 eGFR (black) mL/min/{1.73_m2} Normal >=59 [facility] Comment on above: Order Comment: Order added by Araceli Ex pert. Result Comment: eGFR is race adjusted. AA=. Performed By: #### 2 576575, 7519280, 7806097, 29781130, 9495158, 0852552 ####[facility] [address] [place] [address] eGFR (non-black) mL/min/{1.73_m2} Normal >=59 [facility] Comment on above: Order Comment: Order added by Araceli Ex pert. Result Comment: Decontaminator shirley kidney disease could be indicated at eGFR's of less than 60 mL/min/1.73m2. Kidney failure is indicated at less than 15 mL/min/1.73m2. Performed By: #### 2 430942, 3218493, 4724299, 77371316, 8818112, 8805211 ####[facility] [address] [place] [address] Vital Signs Date Time Vital Sign Value Performing Clinician Faci lity 10-30-2023 15:09-0500 Diastolic blood pressure 77 mm[Hg] Maddy Barker MD Work Phone: [facility] 10-30-2023 15:09-0500 Heart rate 78 /min Maddy Barker MD Work Phone: [facility] 10-30-2023 15:09-0500 Systolic blood pressure 148 mm[Hg] Maddy Barker MD Work Phone: [facility] 10-30-2023 15:08-0500 Body height 177.8 cm Maddy Barker MD Work Phone: [facility] 10-30-2023 15:08-0500 Body mass index (BMI) [Ratio] 26.72 kg/m2 Maddy Barker MD Work Phone: [facility] 10-30-2023 15:08-0500 Body weight 84.46 kg Maddy Barker MD Work Phone: [facility] 10-30-2023 15:08-0500 Respiratory rate 18 /min Maddy Barker MD Work Phone: [facility] Encounters Encounter Date Encounter Type Care Provider Facility Start: 06-10-2024 End: 06-10-2024 ambulatory AMBER NORMAN Not Available Start: 04-01-2024 End: 04-01-2024 ambulatory AMBER NORMAN Not Available Start: 01-29-2024 End: 01-29-2024 ambulatory [facility] Start: 01-22-2024 End: 01-22-2024 ambulatory AMBER NORMAN Not Available Start: 10-30-2023 End: 10-30-2023 Orders Only Swetha Greene LPN [facility] Comment on above: PAD (peripheral kalin ry disease) ([facility]) (Primary Dx); Claudication ([facility]); Acute embolism and thrombosis of unspecified vein Start: 10-30-2023 End: 10-30-2023 Office outpatient visit 25 minutes Maddy Barker MD Work Phone: [facility] Comment on above: PAD (peripheral kalin ry disease) ([facility]) (Primary Dx); Pain and swelling of lower extremity, unspecified laterality; Bilateral carotid bruits Start: 03-06-2023 ambulatory ALEX CHAMORRO Faci lity:H1 Start: 02-12-2023 End: 02-13-2023 ambulatory ALEX CHAMORRO Facility: Start: 09-19-2017 End: 09-19-2017 Ambulatory Sandrine Marvin Facility:[facility] Start: 08-22-2017 End: 08-22-2017 Ambulatory Sandrine Marvin Facility:[facility] Start: 08-18-2017 End: 08-19-2017 Ambulatory Sandrine Marvin Facility:[facility] Start: 08-05-2017 End: 08-05-2017 ambulatory KELSIE M BLAKE [facility] Procedures Date Procedure Procedure Detail Performing Clinician Start: 10-30-2023 Follow-up visit Follow-up MADDY BARKER Plan of Treatment Date Care Activity Detail Author Start: 10-30-2024 Adult BMI Screening Adult BMI Screen [facility] Start: 01-29-2024 End: 01-29-2024 Patient encounter procedure 01/29/2024 11:20 AM EDT [facility] [address] [place] [address] Dorothy Mcintosh MD [address], [address] [address] [facility] Start: 11-02-2023 End: 11-02-2024 US.doppler Lower extremity vein - bilateral Vas venous duplex lwr bilateral Vascular Ultrasound Routine PAD (peripheral artery disease) ([facility]) Pain and swelling of lower extremity, unspecified laterality Bilateral carotid bruits Expected: 11/02/2023, Expires: 11/02/2024 Gabbyedickm Work Phone: Comment on above: Expected: 11/02/2023 , Expires: 11/02/2024 Start: 10-30-2023 End: 10-30-2024 US.doppler Lower extremity vein - bilateral Vas venous duplex lwr bilateral Vascular Ultrasound Routine Claudication ([facility]) Expected: 10/30/2023, Expires: 10/30/2024 [facility] Work Phone: Comment on above: Expected: 10/30/2023 , Expires: 10/30/2024 Start: 06-06-2023 Influenza vaccination Influenza Vacc ine [facility] Start: 2001 Fall Risk Screening Fall Risk Screen ing [facility] Start: 1986 Administration of varicella zoster vaccine Zoster (Shingles) Vaccine (1 of 2) [facility] Start: 1955 DTaP,Tdap and Td Vac cines (1 - Tdap) DTaP,Tdap and Td Vaccines (1 - Tdap) [facility] Start: 1954 Adult BMI Follow Up Plan Adult BMI Follow Up Plan [facility] Start: 1948 Depression Screening [facility] Start: 1948 Tobacco Screening Tobacco Screening [facility] Start: 1936 Medicare Annual Well ness Visit Medicare Annual Wellness Visit [facility] Immunizations Immunization Date Immunization Notes Care Provider Fa palmer 08-15-2022 influenza virus vaccine, unspecified formulation Swetha Greene LPN [facility] Payers Date Payer Category Payer [employer] ( and others) FOR LIFE [id number] 2022-Present [phone] [address] [place] [address] [id number] 2017 Medicare [id number] 2011 Unknown [place]UST [id number] 2011-Present [phone] [address] [place] [address] [id number] 2001 Medicare MEDICARE MEDICAR E PART A & B [id number] 2001-Present [phone] [address] [place] [address] [id number] 1959 [employer] ( and others) [id number] 1959 Medicare [id number] 1959 Unknown [id number] 1936 Unknown [id number] [id number] 1936 Unknown [id number] [id number] 1936 Unknown [id number] 2.1286 1936 Unknown [id number]. 2.1286 1936 Unknown [id number] [id number]. 2.1259 1936 Unknown [id number]. 2.1259 1936 Unknown [id number] 2.1259 Social History Date Type Detail Facility Tobacco smoking stat [facility] Tobacco smoking consumption unknown [facility] Start: 03-17-2019 End: 10-30-2023 History of Social function [facility] Start: 03-17-2019 End: 10-30-2023 Childcare [facility] Childcare Unknown [facility] Start: 1935 Sex Assigned At Not on file [facility] History of Present illness Narrative 10-30-2023 Maddy [...] for this visit: PAD (peripheral artery disease) ([facility]) - Vas venous duplex lwr bilateral; Future [...] months for follow-up. documented in this encounter [facility] Evaluation note Note Date & Type Note Facility Evaluation note Diagnosis PAD (peripheral artery disease) ([facility] Primary Unspecified peripheral vascular disease Claudication ([facility]) Unspecified peripheral vascular disease Acute embolism and thrombosis of unspecified vein documented in this encounter [facility] Evaluation note Note Date & Type Note Facility Evaluation note Diagnosis PAD (peripheral artery disease) ([facility])- Primary Unspecified peripheral vascular disease Pain and swelling of lower extremity, unspecified laterality Bilateral carotid bruits [facility] Instructions Note Date & Type Note Facility Instructions Not on filedocumented in this en counter [facility] Instructions Note Date & Type Note Facility Instructions Not on filedocumented in this en counter [facility] Summary Purpose Family History No Family History Records FoundNo Family History Records FoundNo Family History Records FoundNo Family History Records FoundNo Family History Records Found Advance Directives No Advanced Directives Records FoundNo Advanced Directives Records FoundNo Advanced Directives Records FoundNo Advanced Directives Records FoundNo Advanced Directives Records Found Reason for Referral Specialty Diagnoses / Procedures Referred By Bess melendez Referred To Contact Diagnoses Claudication ([facility]) Procedures Vas venous duplex lwr bilateral Maddy Barker MD [address], [address] [address] Referral ID Status Reason Start Date Expiration Date V isits Requested Visits Authorized [id number] Pending Review 10/30/2023 10/29/2024 1 1 Specialty Diagnoses / Procedures Referred By Bess melendez Referred To Contact Diagnoses PAD (peripheral artery disease) ([facility]) Pain and swelling of lower extremity, unspecified laterality Bilateral carotid bruits Procedures Vas venous duplex lwr bilateral Maddy Barker MD [address], [address] [address] Referral ID Status Reason Start Date Expiration Date V isits Requested Visits Authorized [id number] Pending Review 11/02/2023 11/01/2024 1 1 Additional Source Comments (unrecognized sect ion and content) No Status Records FoundNo Status Records FoundNo Status Records FoundNo Status Records FoundNo Status Records Found INFORMATION SOURCE (unrecogn ized section and content) DATE CREATED AUTHOR 03/31/2018 [place] [facility] DATE CREATED AUTHOR AUTHOR'S ORGANIZ ATION 02/18/2023 [facility] DATE CREATED AUTHOR AUTHOR'S ORGANIZ ATION 01/31/2024 [facility] DATE CREATED AUTHOR AUTHOR'S ORGANIZ ATION 03/07/2024 [facility] DATE CREATED AUTHOR AUTHOR'S ORGANIZ ATION 06/12/2024 [facility] Care Teams (unrecognized sec tion and content) Investigations Manager Relationship Specialty Start Date End Date Kelsie Tobias MD [address] [place] [address] PCP - General Family Medicine 10/24/23 Investigations Manager Relationship Specialty Start Date End Date Kelsie Tobias MD [address] [place] [address] PCP - General Family Medicine 10/24/23 Reason [...] ON THE PRIMARY CLINICAL RECORDS. [facility]. provides no warranty or guarantee of the accuracy or completeness of information in this document.
== END 2024-07-09 09:58 | disposition home or self-care (01) ==
LOC: VC 09:57
PROVIDERS: PCP Family Medicine; Visit Provider Family Medicine
DX: R60.0 Localized edema (principal); I73.9 Peripheral vascular disease, unspecified
CPT/HCPCS: 93925; 93970